=== PATIENT | male | born 1945 | race Caucasian/White ===

== ENCOUNTER → 2016-03-26 | Outpatient (CLI) | payer OTHER, MEDICARE ==
[~2016-03-26] MED LIST: ALPR-411 PO; ALPR0.25 PO; ASCO10003 PO; ASPI81TA28 PO; ATOR-24 PO; ATRIN INH; BISM262C6 PO; CALC500C3 PO; CLOP1TAB15 PO; CYCL0.052 OP; EPP3/2 IM; ESCI10TA17 PO; FURO-85 PO; GABA-112 PO; GLUC1CAP28 PO; GLUCTAB7 PO; IMD/2 PO; IMDSR30 PO; ISOS30TA3 PO; ISOS30TA51 PO; LACT1TAB4 PO; LISI-729 PO; LORA10TA44 PO; LSX20 PO; MELA1TAB20 PO; METH-589 PO; METO25TA3 PO; MULT-506 PO; OMEG10007 PO; OMEG5CAP PO; ONDA4TAB46 PO; OXYC1CAP5 PO; PARO40TA3 PO; POLY1SOL6 OP; POLYSOL4 OP; POTA-331 PO; POTA1CAP2 PO; PRAV80TA2 PO; PROB1TAB16 PO; PRVHFAIN INH; RSTOPS OP; TPRSR25 PO; TYLER650 PO; ZINC1TAB PO
[2016-03-26 10:49] LABS: BASO % 0.6 %; BASO ABS # 0.06 K/uL (0-0.2); COMPLETE YES; EOS % 5.5 %; HEMATOCRIT 44.7 % (42-52); IG% 0.2 %; LYMPH % 40.6 %; LYMPH ABS # 3.89 K/uL (1.2-3.4); MEAN CORPUSCULAR HEMOGLOBIN 32.8 pg (25-34); MEAN PLATELET VOLUME 10.4 fL (7.4-10.4); MONO % 8.1 %; PLATELET COUNT 337 K/uL (130-400); RED BLOOD COUNT 4.91 M/uL (4.7-6.1); WHITE BLOOD COUNT 9.59 K/uL (4.8-10.8)
[2016-03-26 11:01] LABS: ALT/SGPT 27 U/L (12-78); AST/SGOT 15 U/L (15-37); BLOOD UREA NITROGEN 15 mg/dl (7-18); BUN/CREATININE RATIO 16.7 (10-20); CALCIUM 9.5 mg/dl (8.5-10.1); CARBON DIOXIDE 29 mmol/L (21-32); CHLORIDE 106 mmol/L (98-107); GLUCOSE 96 mg/dl (70-99); POTASSIUM 3.8 mmol/L (3.5-5.1); SODIUM 142 mmol/L (136-145)
[2016-03-26 11:10] LABS: ALKALINE PHOSPHATASE 115 U/L (45-117); CHOLESTEROL 164 mg/dl (0-200); CHOLESTEROL/HDL RATIO 3.6; HDL CHOLESTEROL 46 mg/dl; LDL CHOLESTEROL CALCULATED 82 mg/dl; THYROID STIMULATING HORMONE 0.358 uIu/ml (0.300-4.500); TRIGLYCERIDES 180 mg/dl (0-150); VERY LOW DENSITY LIPOPROT CALC 36 mg/dl
[2016-03-29 01:35] LABS: IGA SERUM 252 mg/dL (81-463); TIS TRANS IGA 1 U/mL (<4)
== END | disposition home or self-care (01) ==
LOC: C.LABBC 07:56
PROVIDERS: ATTEND Internal Medicine
DX: R94.5 Abnormal results of liver function studies (principal); D72.829 Elevated white blood cell count, unspecified; E78.5 Hyperlipidemia, unspecified; R14.0 Abdominal distension (gaseous); E04.1 Nontoxic single thyroid nodule

== ENCOUNTER → 2016-04-15 | Outpatient (CLI) | payer OTHER, MEDICARE | END | disposition home or self-care (01) | LOC: C.LABBC 10:41 | PROVIDERS: ATTEND Urology | DX: Z12.5 Encounter for screening for malignant neoplasm of prostate (principal); N40.0 Benign prostatic hyperplasia without lower urinary tract symptoms ==

== ENCOUNTER 2016-06-13 00:16 | Emergency (ER) | payer OTHER, MEDICARE ==
[~2016-06-13] VITALS: Ht 172.7 cm; Wt 80.7 kg
[~2016-06-13 00:16] MED LIST changes: -ALPR0.25 PO; -ATOR-24 PO; -BISM262C6 PO; -CALC500C3 PO; -CLOP1TAB15 PO; -CYCL0.052 OP; -ESCI10TA17 PO; -FURO-85 PO; -GLUC1CAP28 PO; -IMD/2 PO; -ISOS30TA3 PO; -ISOS30TA51 PO; -METO25TA3 PO; -OMEG10007 PO; -ONDA4TAB46 PO; -OXYC1CAP5 PO; -POLY1SOL6 OP; -POLYSOL4 OP; -POTA1CAP2 PO; -PROB1TAB16 PO
[2016-06-13 00:17] VITALS: TEMP 36.7
[2016-06-13] MEDS ORDERED: ONDANSETRON INJ 2 MG/ML 2 ML VIAL IV STA (00:51)
[2016-06-13] MEDS ORDERED: MoRPHine SULFATE 4 MG/ML 1 ML CARP\\VIAL IV STA ×2 (00:51→01:46)
[2016-06-13] MEDS ORDERED: OPTIRAY 320 IV PRN (01:00)
[2016-06-13 01:06] LABS: BASO % 0.3 %; BASO ABS # 0.05 K/uL (0-0.2); COMPLETE YES; EOS % 0.5 %; HEMATOCRIT 41.7 % (42-52); IG% 0.3 %; LYMPH % 14.9 %; LYMPH ABS # 2.45 K/uL (1.2-3.4); MEAN CELL VOLUME 89.1 fL (80-100); MEAN CORPUSCULAR HEMOGLOBIN 33.1 pg (25-34); MEAN CORPUSCULAR HGB CONC 37.2 g/dl (32-36); MEAN PLATELET VOLUME 10.2 fL (7.4-10.4); MONO % 6.1 %; NEUT % 77.9 %; PLATELET COUNT 333 K/uL (130-400); RED BLOOD COUNT 4.68 M/uL (4.7-6.1); WHITE BLOOD COUNT 16.39 K/uL (4.8-10.8)
[2016-06-13 01:17] VITALS: O2SAT 97; Ht 172.7 cm; Wt 80.7 kg
[2016-06-13 01:23] LABS: ALT/SGPT 21 U/L (12-78); AST/SGOT 16 U/L (15-37); BLOOD UREA NITROGEN 11 mg/dl (7-18); BUN/CREATININE RATIO 12.5 (10-20); CALCIUM 9.5 mg/dl (8.5-10.1); CARBON DIOXIDE 25 mmol/L (21-32); CHLORIDE 105 mmol/L (98-107); CREATININE 0.87 mg/dl (0.60-1.40); GLUCOSE 122 mg/dl (70-99); POTASSIUM 3.9 mmol/L (3.5-5.1); SODIUM 140 mmol/L (136-145)
[2016-06-13 01:24] LABS: ISTAT CREATININE 0.8 mg/dl (0.6-1.3); ISTAT IONIZED CALCIUM 1.14 mmol/l (1.12-1.32)
[2016-06-13 01:28] LABS: ALB/GLOB RATIO 0.9 (0.9-2); ALKALINE PHOSPHATASE 90 U/L (45-117)
[2016-06-13] MEDS ORDERED: OMEG10007 PO (01:28)
[2016-06-13] MEDS ORDERED: FURO-85 PO (01:29)
[2016-06-13] MEDS ORDERED: ISR/30 PO (01:31)
[2016-06-13] MEDS ORDERED: METO25TA3 PO (01:34)
[2016-06-13] MEDS ORDERED: POTA1CAP2 PO (01:37)
[2016-06-13] MEDS ORDERED: NURSING VERBAL MED ORDER ONE (01:45)
[2016-06-13 01:49] LABS: PARTIAL THROMBOPLASTIN RATIO 1.1; PROTHROMBIN TIME (PATIENT) 11.1 SECONDS (9.0-12.0)
[2016-06-13] MEDS ORDERED: ESCI10TA17 PO (01:53)
[2016-06-13] MEDS ORDERED: IMD/2 PO (01:57)
[2016-06-13] MEDS ORDERED: HYDROmorphone INJ 2 MG/ML SYR/VIAL IV STA (01:59)
[2016-06-13] MEDS ORDERED: POLYSOL4 OP (02:02)
[2016-06-13] MEDS ORDERED: POLY1SOL6 OP (02:02)
[2016-06-13] MEDS ORDERED: HYDROmorphone INJ 1 MG/ML SYR ONE (02:37)
[2016-06-13 04:04] LABS: MANUAL MICROSCOPIC REQUIRED? NO; REVIEW REQ? NO; URINE APPEARANCE CLEAR (CLEAR); URINE BILIRUBIN NEG (NEG); URINE COLOR YELLOW; URINE NITRITE NEG (NEG); URINE PH 6.5 (4.5-7.5); URINE SPECIFIC GRAVITY > 1.045 (1.000-1.030); UROBILINOGEN NEG (NEG); ZZUR CULT IF INDIC CLEAN CATCH NO
--- NOTE | 2016-06-13 04:56 | EMERGENCY ROOM VISIT NOTE ---
History First contact with patient: 00:27 Chief Complaint: ABDOMINAL PAIN Stated Complaint: STOMACH/INTESTINAL PAINS,BLOATING,GAS,DIARRHEA Nursing Triage Summary: Abdominal pain, bloating and nausea that began intermittently since october, this period of symptoms began friday. Pain has been intermittent as well. History of Present Illness The patient is a 71 year old male who presents to the Emergency Room with complaints of severe upper abdominal pain this been intermittent for the past few days with nausea and diarrhea. Patient had an episode 2 days ago, yesterday and today. Tonight after dinner symptoms came back and was quite severe. He had gnocci with spaghetti sauce. He describes the pain as cramping , ranging in severity 8 out of 10. Nothing made it better or worse. He tried some Pepto-Bismol no relief of symptoms. He took Imodium for the diarrhea. No recent antibiotics. No well water. Patient denies chest pain, fever, chills, black or bloody stool, urinary symptoms. The pain does not radiate. He still has his gallbladder. No prior abdominal surgeries. No history of bowel obstructions. Dr. Christy is his multisensor intelligence officer. Review of Systems See HPI for pertinent positives & negatives. A total of 10 systems reviewed and were otherwise negative. Past Medical/Surgical History Medical Problems: (1) Chest pain (2) Depression (3) History of thyroid nodule (4) Hyperlipidemia (5) Hypertension (6) Osteoporosis Family History Diabetes mellitus FH: heart disease Stroke Social History Smoking Status: Never Smoker Marital Status: Housing Status: lives with significant other Occupation Status: retired Current/Historical Medications Scheduled Ascorbic Acid (Vitamin C), 1,000 MG PO DAILY Aspirin (Aspirin Ec), 81 MG PO HS Cyclosporine (Restasis Eye Drops), 1 DROP OP BID Epinephrine (Epipen), 0.3 MG IM UD Escitalopram (Lexapro), 10 MG PO DAILY Fish Oil ([place]-3), 1,200 MG PO DAILY Furosemide (Lasix), 20 MG PO DAILY Gabapentin (Neurontin), 100 MG PO BID Tnnhrbtazuj-Emmrmpzflyw-Zkg C- (Glucosamine Chondroitin), 1 TAB PO DAILY Isosorbide Dinitrate (Isordil), 30 MG PO DAILY Lactobacillus (Floranex), 1 TAB PO TID Lisinopril (Zestril), 5 MG PO DAILY Loratadine (Allergy), 10 MG PO DAILY Methimazole (Methimazole ), 5 MG PO HS Metoprolol Succ (Toprol Xl) (Toprol-Xl), 25 MG PO BID Multivitamin (Multivitamin), 1 TAB PO DAILY Polyethylene Glycol-Propylene (Systane Ultra), 1 DROPS OP QID Potassium Chloride (Potassium Chloride Er), 10 MEQ PO DAILY Pravastatin Sodium (Pravastatin Sodium), 80 MG PO HS Scheduled PRN Acetaminophen (Tylenol Arthitis Ext Rel), 2 TABS PO TID PRN for PRN Alprazolam (Xanax), 0.25 MG PO HS PRN for Anxiety/Insomnia Loperamide Hcl (Imodium), 2 MG PO QID PRN for Diarrhea Melatonin (Melatonin Tr), 5-10 MG PO HS PRN for Sleep Zinc Gluconate (Zinc), 50 MG PO DAILY PRN for cold Allergies Coded Allergies: BEE STING (Verified Allergy, Mild, 06/13/16) Physical Exam Vital Signs Date Time Temp Pulse Resp B/P Pulse Ox O2 Delivery O2 Flow Rate FiO2 06/13/16 02:01 64 18 182/89 94 06/13/16 01:17 97 Room Air 06/13/16 00:17 36.7 88 20 193/105 96 Room Air Physical Exam VITALS: Vitals are noted on the nurse's note and reviewed by myself. Vital signs every 10th of GENERAL: Elderly male who appears in pain SKIN: The skin was without rashes, erythema, edema, or bruising. There is no tenting of the skin. Capillary reflex less than 2 seconds. HEAD: Normocephalic atraumatic. EARS: External auditory canals clear, tympanic membranes pearly davies without erythema or effusion bilaterally. EYES: Pupils equal round and reactive to light and accommodation. Conjunctivae without injection, sclerae without icterus. Extraocular movements intact. NOSE: Patent, turbinates without inflammation or discharge. MOUTH: Mucous membranes mildly dry. Pharynx without erythema or exudate. Uvula midline. Airway patent. Tongue does not deviate. NECK: Supple without nuchal rigidity. No lymphadenopathy. No thyromegaly. Cervical spine is nontender. No JVD. HEART: Regular rate and rhythm LUNGS: Clear to auscultation bilaterally without wheezes, rales or rhonchi. No dullness to percussion. No retractions or accessory muscle use. ABDOMEN: Positive bowel sounds x 4. Normal tympanic percussion. Soft, tender to palpation right upper quadrant, no CVA tenderness, without masses or organomegaly. No guarding or rebound tenderness. MUSCULOSKELETAL: No muscle atrophy, erythema, or edema noted. NEURO: Patient was alert and oriented to person place and time. Normal sensation to light and sharp touch. No focal neurological deficits. Medical Decision & Procedures Laboratory Results 06/13/16 00:57 Red Blood Count 4.68, Mean Corpuscular Volume 89.1, Mean Corpuscular Hemoglobin 33.1, Mean Corpuscular Hemoglobin Concent 37.2, Mean Platelet Volume 10.2, Neutrophils (%) (Auto) 77.9, Lymphocytes (%) (Auto) 14.9, Monocytes (%) (Auto) 6.1, Eosinophils (%) (Auto) 0.5, Basophils (%) (Auto) 0.3, Neutrophils # (Auto) 12.76, Lymphocytes # (Auto) 2.45, Monocytes # (Auto) 1.00, Eosinophils # (Auto) 0.08, Basophils # (Auto) 0.05 06/13/16 00:57 Test 06/13/16 00:57 06/13/16 01:03 06/13/16 01:11 06/13/16 03:11 White Blood Count 16.39 K/uL (4.8-10.8) Red Blood Count 4.68 M/uL (4.7-6.1) Hemoglobin 15.5 g/dL (14.0-18.0) Hematocrit 41.7 % (42-52) Mean Corpuscular Volume 89.1 fL (80-100) Mean Corpuscular Hemoglobin 33.1 pg (25-34) Mean Corpuscular Hemoglobin Concent 37.2 g/dl (32-36) Platelet Count 333 K/uL (130-400) Mean Platelet Volume 10.2 fL (7.4-10.4) Neutrophils (%) (Auto) 77.9 % Lymphocytes (%) (Auto) 14.9 % Monocytes (%) (Auto) 6.1 % Eosinophils (%) (Auto) 0.5 % Basophils (%) (Auto) 0.3 % Neutrophils # (Auto) 12.76 K/uL (1.4-6.5) Lymphocytes # (Auto) 2.45 K/uL (1.2-3.4) Monocytes # (Auto) 1.00 K/uL (0.11-0.59) Eosinophils # (Auto) 0.08 K/uL (0-0.5) Basophils # (Auto) 0.05 K/uL (0-0.2) RDW Standard Deviation 43.9 fL (36.4-46.3) RDW Coefficient of Variation 13.5 % (11.5-14.5) Immature Granulocyte % (Auto) 0.3 % Immature Granulocyte # (Auto) 0.05 K/uL (0.00-0.02) Prothrombin Time 11.1 SECONDS (9.0-12.0) Prothromb Time International Ratio 1.0 (0.9-1.1) Activated Partial Thromboplast Time 29.6 SECONDS (21.0-31.0) Partial Thromboplastin Ratio 1.1 Est Creatinine Clear Calc Drug Dose 73.1 ml/min Estimated GFR () 99.2 Estimated GFR (Non- 85.6 BUN/Creatinine Ratio 12.5 (10-20) Calcium Level 9.5 mg/dl (8.5-10.1) Total Bilirubin 0.5 mg/dl (0.2-1) Aspartate Amino Transf (AST/SGOT) 16 U/L (15-37) Alanine Aminotransferase (ALT/SGPT) 21 U/L (12-78) Alkaline Phosphatase 90 U/L (45-117) Troponin I < 0.015 ng/ml (0-0.045) Total Protein 7.9 gm/dl (6.4-8.2) Albumin 3.8 gm/dl (3.4-5.0) Globulin 4.1 gm/dl (2.5-4.0) Albumin/Globulin Ratio 0.9 (0.9-2) Bedside Hemoglobin 15.0 g/dl (14.0-18.0) Bedside Hematocrit 44 % (42-52) Bedside Sodium 140 mEq/L (135-144) Bedside Potassium 4.0 mEq/L (3.3-5.0) Bedside Chloride 102 mEq/L (101-112) Bedside Total CO2 22 mEq/l (24-31) Anion Gap 21.0 mmol/L (16-25) Bedside Blood Urea Nitrogen 11 mg/dl (7-18) Bedside Creatinine 0.8 mg/dl (0.6-1.3) Bedside Glucose (other) 126 mg/dl (70-99) Bedside Ionized Calcium (Darwin) 1.14 mmol/l (1.12-1.32) Bedside Lactic Acid Venous 1.75 mmol/L (0.90-1.70) Urine Color YELLOW Urine Appearance CLEAR (CLEAR) Urine pH 6.5 (4.5-7.5) Urine Specific [place] > 1.045 (1.000-1.030) Urine Protein NEG (NEG) Urine Glucose (UA) NEG (NEG) Urine Ketones 1+ (NEG) Urine Occult Blood NEG (NEG) Urine Nitrite NEG (NEG) Urine Bilirubin NEG (NEG) Urine Urobilinogen NEG (NEG) Urine Leukocyte Esterase NEG (NEG) Medications Administered Medications (Trade) Dose Ordered Sig/Bobbi Route Start Time Stop Time Status Last Admin Dose Admin Morphine Sulfate (MoRPHine SULFATE INJ) 4 mg NOW STAT IV 06/13/16 00:51 06/13/16 00:55 DC 06/13/16 01:05 4 MG Ondansetron HCl (Zofran Inj) 4 mg NOW STAT IV 06/13/16 00:51 06/13/16 00:55 DC 06/13/16 01:05 4 MG Morphine Sulfate (MoRPHine SULFATE INJ) 4 mg NOW STAT IV 06/13/16 01:46 06/13/16 01:47 DC 06/13/16 01:46 4 MG ED Course Prior records/ancillary studies reviewed. Triage Nursing notes reviewed. Additional history obtained from family. The patient's history was concerning for abdominal pain. Differential diagnosis: Etiologies such as appendicitis, cardiac, diverticulitis, PUD, biliary pathology , UTI, pancreatitis, obstruction, mesenteric ischemia, aortic pathology, infections, inflammatory bowel disease, renal colic, as well as others were entertained. Physical examination findings: As above. ER treatment provided: Morphine, Zofran On reassessment the patient felt better. Diagnostics interpreted by me: ECG: Normal sinus, normal intervals, T wave inversions in the lateral leads, rate of 64, EKG compared to prior EKG with no acute changes noted. Impression normal sinus rhythm with T-wave inversions in lateral leads interpreted by myself. The labs revealed leukocytosis, mildly elevated lactic acid. Negative urine. Negative troponin. Imaging studies: US RUQ: Exam limited by bowel gas. The pancreas is not well-visualized. Liver measures 14.2 cm in length and is otherwise unremarkable. Right kidney demonstrates normal sonographic appearance without evidence of hydronephrosis. There is cholelithiasis without gallbladder wall thickening, pericholecystic fluid, or sonographic Mina sign. Common bile duct measures 2.1 mm. Radiologist: Kirt Parra M.D. Chest x-ray with no acute consolidation, free air or pneumothorax per my interpretation Preliminary Findings Only See Final Report For Complete Findings CT ABDOMEN & PELVIS: Comparison is made to CT dated 09/10/2007. There is been previous midline sternotomy. There is coronary atherosclerosis. Pacer leads are visualized extending to the right heart. The lung bases are clear. There is a small sliding-type hiatal hernia. There is a punctate gallstone within the gallbladder without findings of acute cholecystitis. The liver, spleen, pancreas, and adrenal glands are unremarkable. There are subcentimeter cysts in the upper pole of the left kidney. There is cortical scarring of the left kidney. Kidneys enhance symmetrically without hydronephrosis or perinephric stranding. There is aortoiliac atherosclerosis without aneurysm. There is calcific plaque at and cephalad to the origin of the celiac access resulting in 50% stenosis of the abdominal aorta (2- 29), increased from prior exam. Plaque may involve the origin of the celiac axis. There is no evidence of bowel obstruction. The visualized appendix is normal. There is diverticulosis of the sigmoid colon without evidence of acute diverticulitis. Urinary bladder and prostate are unremarkable. There are no acute osseous findings. Facet arthrosis results in grade 1 anterolisthesis of L4, increased from prior exam. 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 Radiologist: Kirt Parra M.D. Exam and history seem consistent with biliary colic. Patient is cholelithiasis without cholecystitis on ultrasound. Patient tolerated fluids. He felt better and requested to leave. Patient was offered admission and declined. He states he'll follow-up within 24 hours at the family care Dr. for further evaluation and workup or here in the ER sooner for abdominal pain, fevers, vomiting, worsening signs or symptoms or as needed. I felt this is reasonable. Case management will follow-up today with the patient to make sure he follows up with the family care doctor. By the evaluation outlined above emergent etiologies such as appendicitis, diverticulitis, PUD, UTI, pancreatitis, obstruction, mesenteric ischemia, aortic pathology, infections, inflammatory bowel disease, renal colic, as well as others were deemed relatively unlikely. The pt informed about the findings as listed above. All questions were answered and pleased with the treatment. Return instructions were outlined and the patient was discharged in stable condition. Outpatient prescription management: Zofran, OxyIR Referral: The patient was referred back to their primary care physician for follow-up in 24 hours for a recheck of the current condition. Case reviewed by attending Medical Decision As above Impression Primary Impression: Biliary colic Additional Impression: Abdominal pain Departure Information Dispostion Home / Self-Care Condition GOOD Referrals Pro,Jair Denney M.D. (PCP) Patient Instructions My [facility] Additional Instructions DO NOT drive, drink alcohol, operate machinery, or perform dangerous activities today. You were given medications in the ER that can affect your ability to safely function or operate a vehicle. Oxycodone (OxyIR) 5mg: Take 1-2 pills every four hours for breakthrough pain. Avoid alcohol, operating machinery or dangerous equipment, working on ladders or roofs, DRIVING, or situations where being under the influence may be dangerous. It is recommended to use an [id number] stool softener such as Colace, 100mg twice daily while taking this medication to avoid constipation. Ibuprofen(Motrin, Advil) may be used for fever or pain. Use 600mg every six hours as needed. Take with food. Avoid using more than 2400mg in a 24 hour period. Do not use 2400mg per day for more than three consecutive days without physician direction. Prolonged inappropriate use can lead to stomach upset or ulcers. (AND/OR) Acetaminophen(Tylenol) may be used for fever or pain. Use 1000mg every six hours as needed. Avoid using more than 3000mg in a 24 hour period. Zofran 4mg: Take one every six hours as needed for nausea. Avoid alcohol, operating machinery or dangerous equipment, working on ladders or roofs, DRIVING , or situations where being under the influence may be dangerous. Rest and drink plenty of fluids as tolerated. Slow sips of water or sports drinks are recommended instead of large amounts all at once. Continue current medications. Once your stomach is settled start with a clear liquid diet (jello, soup broth, etc.) and then advance as tolerated. You should avoid full, heavy meals for about 24 hrs from the time your symptoms resolved. Avoid fatty foods until cleared by your family care doctor. Return to the ER immediately for worsening or persistent abdominal pain, vomiting, fevers, chest pains, difficulty breathing, black or bloody stools, worsening of your condition, or as needed. Follow up with your primary physician in 24 hours for a recheck of your current condition and for further testing and/or gallbladder such as a HIDA scan. Problem Qualifiers
[2016-06-13] MEDS ORDERED: ONDANSETRON HOME PACK 4MG OD TAB PO ONE (05:00)
[2016-06-13] MEDS ORDERED: OXYCODONE IR HOME PACK PO ONE (05:00)
[2016-06-13 05:11] VITALS: BP 165/82; PULSE 69; O2SAT 95
--- NOTE | 2016-06-13 06:08 | EMERGENCY ROOM VISIT NOTE ---
ED Visit Note First contact with patient: 00:27 I have personally evaluated and examined this patient. I agree with assessment and plan of Katerin Mensah PA-C.
--- NOTE | 2016-06-13 07:19 | DIAGNOSTIC IMAGING REPORT ---
ABDOMEN AND PELVIS CT WITH IV CONTRAST CT DOSE: 334.17 mGy.cm HISTORY: severe upper abd pain TECHNIQUE: Multiaxial CT images of the abdomen and pelvis were performed following the use of intravenous contrast. COMPARISON STUDY: Abdomen and pelvis CT 09/10/2007. FINDINGS: The lung bases are clear. Bilateral L5 spondylolysis. Poststernotomy changes and pacemaker wires are present. Small hiatus hernia. A 1.8 cm lipoma at the gastric antrum. A 4 mm hypodense lesion within the right hepatic lobe is too small to characterize. Focal small defect within the spleen suggestive of scarring. The adrenal glands and pancreas are unremarkable. No hydronephrosis. A few subcentimeter hypodense lesions within the kidneys are too small to characterize. The largest within the upper pole the left kidney measures 8 mm. Normal bladder. Punctate stones within the gallbladder. No gallbladder wall thickening. No retroperitoneal lymphadenopathy. Colonic diverticulosis. No bowel wall thickening or obstruction. Normal appendix. Focal area of calcified plaque at the origin of the celiac artery resulting in 40% stenosis of the abdominal aorta at this level. IMPRESSION: 1. No bowel wall thickening or obstruction. 2. Colonic diverticulosis. 3. Normal appendix. 4. A 1.8 cm lipoma the gastric antrum. 5. Cholelithiasis. 6. Focal area of calcified plaque at the level of the origin of the celiac artery resulting in 40% stenosis of the abdominal aorta. Electronically signed by: Adam Issa M.D. 06/13/2016 7:17 AM Dictated Date/Time: 06/13/2016 7:12 AM
--- NOTE | 2016-06-13 07:21 | DIAGNOSTIC IMAGING REPORT ---
Arm quadrant ultrasound GALLBLADDER-ABD LIMITED CLINICAL HISTORY: rug pain, ? GB pain. Nausea. TECHNIQUE: Ultrasound COMPARISON STUDY: None FINDINGS: Gallstones and sludge within the gallbladder lumen. Normal caliber bile ducts. No abnormal pericholecystic fluid. Extrahepatic common bile that measures 4 mm. Liver is uniform throughout. Pancreas and right kidney are unremarkable. Right kidney is negative for hydronephrosis. IMPRESSION: Several gallstones with a small amount of gallbladder sludge. Normal caliber bile ducts. Otherwise negative right upper quadrant ultrasound Electronically signed by: Elroy Navarro M.D. 06/13/2016 7:19 AM Dictated Date/Time: 06/13/2016 7:17 AM
--- NOTE | 2016-06-13 08:04 | DIAGNOSTIC IMAGING REPORT ---
CHEST ONE VIEW PORTABLE HISTORY: epigastric pain COMPARISON: Chest 10/27/2015. FINDINGS: There are post anatomy changes and left-sided dual-chamber pacemaker. There are cervical spinal fusion hardware. A vascular stent overlies the aortic knob. The heart remains mildly enlarged. No pleural effusions. No pneumothorax. The lungs are clear. IMPRESSION: No significant change compared to the prior study. No acute process. Electronically signed by: Adam Issa M.D. 06/13/2016 8:02 AM Dictated Date/Time: 06/13/2016 8:01 AM
[2016-06-14] MEDS ORDERED: OXYC1CAP5 PO (17:58)
[2016-06-14] MEDS ORDERED: ONDA4TAB46 PO (17:58)
[2016-09-20] MEDS ORDERED: ATOR-24 PO (11:21)
[2016-09-20] MEDS ORDERED: BISM262C6 PO (11:21)
[2016-09-20] MEDS ORDERED: PROB1TAB16 PO (11:21)
[2016-09-20] MEDS ORDERED: ALPR0.25 PO (11:21)
[2016-09-20] MEDS ORDERED: CLOP1TAB15 PO (11:21)
[2016-09-20] MEDS ORDERED: CALC500C3 PO (11:21)
[2016-09-20] MEDS ORDERED: CYCL0.052 OP (11:21)
[2016-09-20] MEDS ORDERED: ISOS30TA3 PO (11:21)
[2016-09-20] MEDS ORDERED: GLUC1CAP28 PO (11:21)
== END 2016-06-13 05:13 | disposition home or self-care (01) ==
LOC: C.EDB 00:17
DX: K80.50 Calculus of bile duct without cholangitis or cholecystitis without obstruction (principal); R10.10 Upper abdominal pain, unspecified; E78.5 Hyperlipidemia, unspecified; I10 Essential (primary) hypertension; F32.9 Major depressive disorder, single episode, unspecified; M81.0 Age-related osteoporosis without current pathological fracture; Z79.82 Long term (current) use of aspirin; Z79.899 Other long term (current) drug therapy; Z91.030 Bee allergy status

== ENCOUNTER 2016-06-14 15:29 | Emergency (ER) | payer OTHER, MEDICARE ==
[~2016-06-14] VITALS: Ht 172.7 cm; Wt 80.0 kg
[~2016-06-14 15:29] MED LIST changes: -ATRIN INH; +ESCI10TA17 PO; +FURO-85 PO; +IMD/2 PO; -IMDSR30 PO; +ISR/30 PO; -LSX20 PO; +METO25TA3 PO; +OMEG10007 PO; -OMEG5CAP PO; -PARO40TA3 PO; +POLY1SOL6 OP; -POTA-331 PO; +POTA1CAP2 PO; -PRVHFAIN INH; -TPRSR25 PO
[2016-06-14 15:34] VITALS: Ht 172.7 cm; Wt 80.0 kg
[2016-06-14] MEDS ORDERED: ONDANSETRON INJ 2 MG/ML 2 ML VIAL IV STA (17:43)
[2016-06-14] MEDS ORDERED: SODIUM CHLORIDE 0.9% 1000ML 1,000 ML IV STA (17:43)
[2016-06-14] MEDS ORDERED: MoRPHine SULFATE 4 MG/ML 1 ML CARP\\VIAL IV STA ×2 (17:43→20:12)
[2016-06-14] MEDS ORDERED: OXYC1CAP5 PO (17:58)
[2016-06-14] MEDS ORDERED: ONDA4TAB46 PO (17:58)
[2016-06-14 18:29] LABS: HEMATOCRIT 39.9 % (42-52); MEAN CELL VOLUME 89.9 fL (80-100); MEAN CORPUSCULAR HGB CONC 35.6 g/dl (32-36); MEAN PLATELET VOLUME 10.1 fL (7.4-10.4); PLATELET COUNT 309 K/uL (130-400); RED BLOOD COUNT 4.44 M/uL (4.7-6.1)
[2016-06-14 18:37] LABS: INR 1.2 (0.9-1.1); PARTIAL THROMBOPLASTIN RATIO 1.2
[2016-06-14 18:47] LABS: BUN/CREATININE RATIO 13.5 (10-20); CALCIUM 9.3 mg/dl (8.5-10.1); CREATININE 1.2 mg/dl (0.60-1.40); MAGNESIUM 1.9 mg/dl (1.8-2.4); POTASSIUM 4.6 mmol/L (3.5-5.1)
[2016-06-14 18:55] LABS: ALB/GLOB RATIO 0.8 (0.9-2); C-REACTIVE PROTEIN 24.9 mg/dl (0-0.29); CKMB/CK RATIO 1.3 (0-3.0)
--- NOTE | 2016-06-14 19:05 | EMERGENCY ROOM VISIT NOTE ---
History First contact with patient: 17:17 Chief Complaint: ABDOMINAL PAIN Stated Complaint: ABD. PAIN Nursing Triage Summary: Triage note: pt reports he was seen in ed friday night for same symptoms. pt reports "i have extreme pain in my lower abd the pain never went away and it got worse last night." pt reports nausea and vomitting. pt reports constipation - last bm was friday. History of Present Illness The patient is a 71 year old male who presents to the Emergency Department by private vehicle for ongoing symptoms of abdominal pain and nausea with associated vomiting after eating. He reports that he feels as though his symptoms initially developed in October 2015 and have progressively worsened since. He reports over the past week he has had increasing pain following eating. He has had vomiting as well. He was seen in this facility yesterday and had evaluation for possible biliary colic with associated gallstones. It was suggested that he might need a HIDA scan. He was referred back to his primary care provider with whom he followed up today. He reports that her symptoms of pain worsened today. He made his primary care provider aware. He was roughly directed to the emergency Department for further evaluation and management. The patient reports pain in the lower abdomen today where his pain was in the upper abdomen previously. He is had nausea and vomiting after meals. He rates his current discomfort as a 10/10. He denies any previous abdominal surgeries. The patient does have a significant cardiac history consistent with hypertension, coronary artery disease, CABG 4 in 2005 with subsequent stenting performed in 2015. The patient had a cardiac arrest in 2014 with subsequent AICD placement. The patient has used his Percocet he was provided during previous visit with minimal relief of symptoms. He currently denies any headaches, dizziness, chest pain, palpitations, short of breath, cough, hematemesis, hematochezia, melena, hematuria, or dysuria. Review of Systems A complete 10-point Review of Systems was discussed with the patient, with pertinent positives and negatives listed in the History of Present Illness. All remaining Review of Systems questions can be considered negative unless otherwise specified. Past Medical/Surgical History Medical Problems: (1) Chest pain (2) Depression (3) History of thyroid nodule (4) Hyperlipidemia (5) Hypertension (6) Osteoporosis Family History Diabetes mellitus FH: heart disease Stroke Social History Smoking Status: Never Smoker Smokeless Tobacco Use: No Alcohol Use: none Drug Use: none Marital Status: Housing Status: lives with significant other Occupation Status: retired Current/Historical Medications Scheduled Ascorbic Acid (Vitamin C), 1,000 MG PO DAILY Aspirin (Aspirin Ec), 81 MG PO HS Cyclosporine (Restasis Eye Drops), 1 DROP OP BID Epinephrine (Epipen), 0.3 MG IM UD Escitalopram (Lexapro), 10 MG PO DAILY Fish Oil ([place]-3), 1,200 MG PO DAILY Furosemide (Lasix), 20 MG PO DAILY Gabapentin (Neurontin), 100 MG PO BID Ozjwpdsooqr-Ryttfbsocto-Mhf C- (Glucosamine Chondroitin), 1 TAB PO DAILY Isosorbide Dinitrate (Isordil), 30 MG PO DAILY Lactobacillus (Floranex), 1 TAB PO TID Lisinopril (Zestril), 5 MG PO DAILY Loratadine (Allergy), 10 MG PO DAILY Methimazole (Methimazole ), 5 MG PO HS Metoprolol Succ (Toprol Xl) (Toprol-Xl), 25 MG PO BID Multivitamin (Multivitamin), 1 TAB PO DAILY Polyethylene Glycol-Propylene (Systane Ultra), 1 DROPS OP QID Potassium Chloride (Potassium Chloride Er), 10 MEQ PO DAILY Pravastatin Sodium (Pravastatin Sodium), 80 MG PO HS Scheduled PRN Acetaminophen (Tylenol Arthitis Ext Rel), 2 TABS PO TID PRN for PRN Alprazolam (Xanax), 0.25 MG PO HS PRN for Anxiety/Insomnia Loperamide Hcl (Imodium), 2 MG PO QID PRN for Diarrhea Melatonin (Melatonin Tr), 5-10 MG PO HS PRN for Sleep Ondansetron Hcl (Zofran), 4 MG PO for Nausea Oxycodone Hcl (Oxycodone Hcl), 1 CAP PO TID PRN for Pain Zinc Gluconate (Zinc), 50 MG PO DAILY PRN for cold Allergies Coded Allergies: BEE STING (Verified Allergy, Mild, 06/14/16) Physical Exam Vital Signs Date Time Temp Pulse Resp B/P Pulse Ox O2 Delivery O2 Flow Rate FiO2 06/14/16 22:06 74 16 112/61 92 Nasal Cannula 2.0 06/14/16 21:12 37.2 75 16 113/82 93 Nasal Cannula 2.0 06/14/16 20:21 88 Nasal Cannula 2.0 06/14/16 20:20 69 16 123/67 92 06/14/16 19:58 72 16 147/79 92 Room Air 06/14/16 18:17 68 06/14/16 17:59 67 16 125/63 06/14/16 17:59 Room Air 06/14/16 15:34 36.5 75 18 121/73 94 Room Air Pain Rating (0-10): 10 Physical Exam VITAL SIGNS - Vital signs and nursing notes were reviewed. GENERAL - 71-year-old male appearing his stated age who is in no acute distress. Communicates well with provider and answers questions appropriately. LUNGS - Chest wall symmetric without accessory muscle use, intercostals retractions, or central cyanosis. Normal vesicular breath sounds CTA B/L. No wheezes, rales, or rhonchi appreciated. CARDIAC - RRR with S1/S2. No murmur, rubs, or gallops appreciated. ABDOMEN - Abdominal contour flat and without pulsations or visible masses. BS distant all four quadrants. Moderate tenderness to palpation appreciated in the lower abdomen. No guarding. No Rebound Tenderness. Negative Rovsing's. Negative Mina's. No palpable masses, hepatosplenomegaly, or ascites noted. PSYCH - A&Ox3 and cooperates fully with examiner. Pt is very pleasant and interacts well with examiner. Medical Decision & Procedures ER Provider Diagnostic Interpretation: Radiological imaging and reports were reviewed by myself. Radiologist's Interpretation as follows: CHEST AND ABDOMEN 2 VIEWS HISTORY: Generalized abdominal pain. COMPARISON: Chest 06/13/2016. Abdomen and pelvis CT 06/13/2016. FINDINGS: Poststernotomy changes and a left-sided pacemaker. Cervical spinal fusion hardware is again noted. There is a vascular stent overlying the aortic knob. No pleural effusions. No pneumothorax. The heart remains mildly enlarged. No pneumoperitoneum or pneumatosis. Interval development of a dilated loop of small bowel within the abdomen containing fluid levels. This measures up to 4 cm in diameter. There is gas and stool seen throughout the colon. IMPRESSION: 1. No acute process within the chest. 2. Interval development of a dilated gas and fluid-filled loop of small bowel within the midabdomen. Gas and stool remains within the colon. Therefore, this could represent a partial small bowel obstruction. ABDOMEN AND PELVIS CT WITH IV CONTRAST CT DOSE: 610.19 mGy.cm HISTORY: Worsening generalized abdominal pain. Small bowel obstruction. Worsening leukocytosis. TECHNIQUE: Multiaxial CT images of the abdomen and pelvis were performed following the use of intravenous contrast. COMPARISON STUDY: Abdomen and pelvis CT 06/13/2016. FINDINGS: Post sternotomy changes and pacemaker wires are noted. Coronary artery calcifications. Bibasilar densities favor subsegmental atelectasis. Bilateral L5 spondylolysis with associated anterolisthesis. 5 mm hypodense lesion within the right hepatic dome is too small to characterize. Focal scar within the spleen remains unchanged. The adrenal glands and pancreas are unremarkable. Vicarious excretion of contrast within the gallbladder. No gallbladder wall thickening. Small hiatus hernia. There is again noted a 1.8 cm lipoma at the gastric antrum. A few subcentimeter hypodense lesions within the kidneys are too small to characterize. The largest in the left kidney measures 7 mm. A 4 mm stone within the left kidney. No hydronephrosis. Focal area of calcified plaque within the upper abdominal aorta at the level of the celiac artery which results in 40% stenosis of the abdominal aorta this level. There is also focal narrowing at the origin of the celiac and superior mesenteric artery. 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 There appears be mild fat stranding surrounding the celiac artery. There are multifocal areas of diminished flow within a branch of the superior mesenteric artery extending to the distal ileal loops which is highly suggestive of areas of arterial occlusion. There is associated mild thickening of the distal ileal loops with minimal surrounding fat stranding. The distal ileal loops are fluid-filled and slightly dilated. There may be a few punctate foci of nondependent gas within the thickened ileal loops. Therefore, this raises the possibility of developing pneumatosis. This is best seen on image 295 of 506. The bladder is unremarkable. Approximately 40% focal stenosis at the origin of the right common iliac artery. Colonic diverticulosis. IMPRESSION: 1. Multifocal areas of diminished contrast opacification within a branch of the superior mesenteric artery which extends to the distal ileal loops consistent with high-grade arterial stenosis/occlusion. There is associated mild bowel wall thickening and adjacent fat stranding at the distal ileal loops. Therefore, these findings are highly suspicious for an ischemic enteritis. Inflammatory or infectious process could also have a similar appearance in the appropriate clinical setting. There may be a few punctate foci of nondependent gas within the thickened ileal loops. Therefore, this raises the possibility of developing pneumatosis. 2. Focal area of calcified plaque within the upper abdominal aorta resulting in 40% stenosis of the upper abdominal aorta. This is located at the origin of the celiac and superior mesenteric arteries also resulting in stenosis of these arteries. There is also suggestion of mild fat stranding surrounding the celiac artery. Therefore, there could be a superimposed arteritis. Clinical correlation recommended. 3. Additional findings as described above. 4. These findings were discussed the patient's physician registered dental assistant rda, Wander Puckett, at 8:35 PM on 06/14/2016. Laboratory Results 06/14/16 18:12 Red Blood Count 4.44, Mean Corpuscular Volume 89.9, Mean Corpuscular Hemoglobin 32.0, Mean Corpuscular Hemoglobin Concent 35.6, Mean Platelet Volume 10.1, Neutrophils (%) (Auto) 78.0, Lymphocytes (%) (Auto) 9.5, Monocytes (%) (Auto) 12.1, Eosinophils (%) (Auto) 0.0, Basophils (%) (Auto) 0.1, Neutrophils # (Auto ) 14.59, Lymphocytes # (Auto) 1.78, Monocytes # (Auto) 2.26, Eosinophils # (Auto ) 0.00, Basophils # (Auto) 0.02 06/14/16 18:12 Test 06/14/16 18:12 06/14/16 18:23 06/14/16 21:10 White Blood Count 18.70 K/uL (4.8-10.8) Red Blood Count 4.44 M/uL (4.7-6.1) Hemoglobin 14.2 g/dL (14.0-18.0) Hematocrit 39.9 % (42-52) Mean Corpuscular Volume 89.9 fL (80-100) Mean Corpuscular Hemoglobin 32.0 pg (25-34) Mean Corpuscular Hemoglobin Concent 35.6 g/dl (32-36) Platelet Count 309 K/uL (130-400) Mean Platelet Volume 10.1 fL (7.4-10.4) Neutrophils (%) (Auto) 78.0 % Lymphocytes (%) (Auto) 9.5 % Monocytes (%) (Auto) 12.1 % Eosinophils (%) (Auto) 0.0 % Basophils (%) (Auto) 0.1 % Neutrophils # (Auto) 14.59 K/uL (1.4-6.5) Lymphocytes # (Auto) 1.78 K/uL (1.2-3.4) Monocytes # (Auto) 2.26 K/uL (0.11-0.59) Eosinophils # (Auto) 0.00 K/uL (0-0.5) Basophils # (Auto) 0.02 K/uL (0-0.2) RDW Standard Deviation 45.5 fL (36.4-46.3) RDW Coefficient of Variation 13.8 % (11.5-14.5) Immature Granulocyte % (Auto) 0.3 % Immature Granulocyte # (Auto) 0.05 K/uL (0.00-0.02) Dohle Bodies 1+ Erythrocyte Sedimentation Rate 48 mm/hr (0-14) Prothrombin Time 13.0 SECONDS (9.0-12.0) Prothromb Time International Ratio 1.2 (0.9-1.1) Activated Partial Thromboplast Time 32.0 SECONDS (21.0-31.0) Partial Thromboplastin Ratio 1.2 Anion Gap 9.0 mmol/L (3-11) Est Creatinine Clear Calc Drug Dose 53.0 ml/min Estimated GFR () 69.1 Estimated GFR (Non- 59.6 BUN/Creatinine Ratio 13.5 (10-20) Calcium Level 9.3 mg/dl (8.5-10.1) Magnesium Level 1.9 mg/dl (1.8-2.4) Total Bilirubin 1.2 mg/dl (0.2-1) Aspartate Amino Transf (AST/SGOT) 21 U/L (15-37) Alanine Aminotransferase (ALT/SGPT) 18 U/L (12-78) Alkaline Phosphatase 82 U/L (45-117) Total Creatine Kinase 173 U/L (39-308) Creatine Kinase MB 2.3 ng/ml (0.5-3.6) Creatine Kinase MB Ratio 1.3 (0-3.0) Troponin I 0.030 ng/ml (0-0.045) C-Reactive Protein 24.90 mg/dl (0-0.29) Total Protein 7.4 gm/dl (6.4-8.2) Albumin 3.2 gm/dl (3.4-5.0) Globulin 4.2 gm/dl (2.5-4.0) Albumin/Globulin Ratio 0.8 (0.9-2) Lipase 75 U/L (73-393) Bedside Lactic Acid Venous 1.64 mmol/L (0.90-1.70) Urine Color ORANGE Urine Appearance CLEAR (CLEAR) Urine pH 5.0 (4.5-7.5) Urine Specific [place] > 1.045 (1.000-1.030) Urine Protein 1+ (NEG) Urine Glucose (UA) NEG (NEG) Urine Ketones NEG (NEG) Urine Occult Blood TRACE (NEG) Urine Nitrite NEG (NEG) Urine Bilirubin NEG (NEG) Urine Urobilinogen NEG (NEG) Urine Leukocyte Esterase NEG (NEG) Urine WBC (Auto) 1-5 /hpf (0-5) Urine RBC (Auto) 0-4 /hpf (0-4) Urine Hyaline Casts (Auto) 10-30 /lpf (0-5) Urine Epithelial Cells (Auto) 10-20 /lpf (0-5) Urine Bacteria (Auto) NEG (NEG) Urine Pathogenic Casts /lpf (0) Medications Administered Medications (Trade) Dose Ordered Sig/Bobbi Route Start Time Stop Time Status Last Admin Dose Admin Morphine Sulfate (MoRPHine SULFATE INJ) 4 mg NOW STAT IV 06/14/16 17:43 06/14/16 17:44 DC 06/14/16 18:14 4 MG Ondansetron HCl 4 mg 4 mg NOW STAT IV 06/14/16 17:43 06/14/16 17:44 DC 06/14/16 18:14 4 MG Sodium Chloride (Nss 1000ml) 1,000 ml @ 80 mls/hr [id number] STAT IV 06/14/16 17:43 06/15/16 06:12 06/14/16 18:18 80 MLS/HR Morphine Sulfate (MoRPHine SULFATE INJ) 4 mg NOW STAT IV 06/14/16 20:12 06/14/16 20:13 DC 06/14/16 20:20 4 MG Piperacillin Sod/ Tazobactam Sod (Zosyn Iv) 4.5 gm NOW STAT IV 06/14/16 20:55 06/14/16 20:56 DC 06/14/16 21:08 4.5 GM Procedure Patient was placed on the cover operator and monitored throughout the entire extent of their stay. In addition, the patient's pulse oximetry was monitored throughout the entire stay. Any abnormalities or aberrancies were addressed appropriately. ECG Indication: abdominal pain Rate (beats per minute): 66 Rhythm: normal sinus Findings: nonspecific-ST abn (Lateral), no acute ischemic change Change: no significant change (from 06/13/2016.) ED Course Patient was seen and evaluated by myself. Previous emergency department visit notes were reviewed. Labs were drawn, saline lock in place. Patient was treated with 4 mg morphine and 4 mg Zofran intravenously. Obstruction series was obtained. X-ray was obtained. Laboratory results demonstrate a moderate leukocytosis of greater than 18,000. The patient is not anemic. There are no significant electrolyte abnormalities. ESR and CRP are both significantly elevated. [id number] lactic acid was found to be negative. Cardiac enzymes are negative. Troponin is negative. EKG is unchanged. X-ray concerning for small bowel instruction. The patient was evaluated and reports persistent pain. He was treated with an additional 4 mg [address] for [address] of the abdomen and pelvis with IV contrast was repeated. I was contacted by radiology for concerning findings. Case was reviewed with my attending physician and apparently evaluated the patient and agrees with the diagnostic approach and treatment plan. The patient was treated with IV Zosyn. I did discuss the case with Dr. Ana Neumann of general surgery. She feels this may be best managed from a vascular standpoint with possible tertiary care coverage. I did discuss the case with Dr. Pacheco. He feels this is mostly a surgical case. I did discuss the case with Dr. Skaggs of general surgery at [facility]. She will accept the patient, however she requests that I rediscuss the patient with Dr. Neumann. I did contact Dr. Neumann a second time. She still does not feel comfortable managing this patient at this facility. I was asked to speak with hospitalist at [facility] for transfer. I discussed the case with Dr. Hitchcock. He accepted admission. Patient was transferred to in stable condition. Medical Decision Given the patient's presentation and exam findings, I did elect to perform the above-mentioned workup. The patient presents to the emergency department with ongoing abdominal discomfort. She reports that the pain is now the lower abdomen. His exam is consistent with lower abdominal discomfort. He does have increasing leukocytosis from his previous visit. Most of his pain is postprandial in nature. I did repeat an x-ray initially which was concerning for small bowel structure. Given his worsening leukocytosis in the setting of a small bowel obstruction, I did elect to repeat the CT scan. CT was concerning for ischemic enteritis with possible developing pneumatosis. General surgeon was not comfortable managing the patient this facility and asked neurosurgery did not feel necessary for vascular intervention at this point. [facility] in transfer to their facility. The patient was transferred in stable condition. In the evaluation and treatment of this patient, the following differential diagnoses were considered: Appendicitis, Diverticulitis, Diverticulosis, Colitis , Ischemic Colitis, Inflammatory Bowel Disease, Irritable Bowel Disease, Testicular Torsion, Kidney Stone, Pyelonephritis, Hydronephrosis, Cholecystitis , Ascending Cholangitis, Choledocholithiasis, GERD. Impression Primary Impression: Ischemic enteritis Additional Impressions: Abdominal pain Pneumatosis of intestines Departure Information Dispostion Transfer Acute Care Facility Condition [facility] Referrals Pro,Jair Denney M.D. (PCP) Patient Instructions [facility] Problem Qualifiers Additional Impressions: Abdominal pain Abdominal location: lower abdomen, unspecified Qualified Codes: R10.30 - Lower abdominal pain, unspecified
[2016-06-14 19:17] LABS: BASO % 0.1 %; BASO ABS # 0.02 K/uL (0-0.2); COMPLETE YES; DOHLE BODIES 1+; IG% 0.3 %; LYMPH % 9.5 %; LYMPH ABS # 1.78 K/uL (1.2-3.4); MONO % 12.1 %
[2016-06-14] MEDS ORDERED: OPTIRAY 320 IV PRN (19:30)
[2016-06-14 20:21] VITALS: O2SAT 88
--- NOTE | 2016-06-14 20:38 | DIAGNOSTIC IMAGING REPORT ---
ABDOMEN AND PELVIS CT WITH IV CONTRAST CT DOSE: 610.19 mGy.cm HISTORY: Worsening generalized abdominal pain. Small bowel obstruction. Worsening leukocytosis. TECHNIQUE: Multiaxial CT images of the abdomen and pelvis were performed following the use of intravenous contrast. COMPARISON STUDY: Abdomen and pelvis CT 06/13/2016. FINDINGS: Post sternotomy changes and pacemaker wires are noted. Coronary artery calcifications. Bibasilar densities favor subsegmental atelectasis. Bilateral L5 spondylolysis with associated anterolisthesis. 5 mm hypodense lesion within the right hepatic dome is too small to characterize. Focal scar within the spleen remains unchanged. The adrenal glands and pancreas are unremarkable. Vicarious excretion of contrast within the gallbladder. No gallbladder wall thickening. Small hiatus hernia. There is again noted a 1.8 cm lipoma at the gastric antrum. A few subcentimeter hypodense lesions within the kidneys are too small to characterize. The largest in the left kidney measures 7 mm. A 4 mm stone within the left kidney. No hydronephrosis. Focal area of calcified plaque within the upper abdominal aorta at the level of the celiac artery which results in 40% stenosis of the abdominal aorta this level. There is also focal narrowing at the origin of the celiac and superior mesenteric artery. 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 There appears be mild fat stranding surrounding the celiac artery. There are multifocal areas of diminished flow within a branch of the superior mesenteric artery extending to the distal ileal loops which is highly suggestive of areas of arterial occlusion. There is associated mild thickening of the distal ileal loops with minimal surrounding fat stranding. The distal ileal loops are fluid-filled and slightly dilated. There may be a few punctate foci of nondependent gas within the thickened ileal loops. Therefore, this raises the possibility of developing pneumatosis. This is best seen on image 295 of 506. The bladder is unremarkable. Approximately 40% focal stenosis at the origin of the right common iliac artery. Colonic diverticulosis. IMPRESSION: 1. Multifocal areas of diminished contrast opacification within a branch of the superior mesenteric artery which extends to the distal ileal loops consistent with high-grade arterial stenosis/occlusion. There is associated mild bowel wall thickening and adjacent fat stranding at the distal ileal loops. Therefore, these findings are highly suspicious for an ischemic enteritis. Inflammatory or infectious process could also have a similar appearance in the appropriate clinical setting. There may be a few punctate foci of nondependent gas within the thickened ileal loops. Therefore, this raises the possibility of developing pneumatosis. 2. Focal area of calcified plaque within the upper abdominal aorta resulting in 40% stenosis of the upper abdominal aorta. This is located at the origin of the celiac and superior mesenteric arteries also resulting in stenosis of these arteries. There is also suggestion of mild fat stranding surrounding the celiac artery. Therefore, there could be a superimposed arteritis. Clinical correlation recommended. 3. Additional findings as described above. 4. These findings were discussed the patient's physician assistant production editor, Wander Puckett, at 8:35 PM on 06/14/2016. Electronically signed by: Adam Issa M.D. 06/14/2016 8:35 PM Dictated Date/Time: 06/14/2016 8:18 PM
--- NOTE | 2016-06-14 20:49 | EMERGENCY ROOM VISIT NOTE ---
ED Visit Note First contact with patient: 17:17 I did evaluate and examine this patient myself. I did guide management for the patient. I agree with the PA's assessment as discussed. Please see the PAs dictation for further details. I did independently review the CT scan and blood work. Surgery will be consulted.
[2016-06-14] MEDS ORDERED: PIPERACILLIN/TAZOBACTAM 4.5 GM/100ML D5W IV STA (20:55)
[2016-06-14 21:12] VITALS: TEMP 37.2
[2016-06-14 21:25] LABS: MANUAL MICROSCOPIC REQUIRED? NO; REVIEW REQ? YES; URINE APPEARANCE CLEAR (CLEAR); URINE BILIRUBIN NEG (NEG); URINE COLOR ORANGE; URINE NITRITE NEG (NEG); URINE SPECIFIC GRAVITY > 1.045 (1.000-1.030); UROBILINOGEN NEG (NEG); ZZUR CULT IF INDIC CLEAN CATCH NO
[2016-06-15 00:07] VITALS: BP 124/66; PULSE 76; O2SAT 92
[2016-09-20] MEDS ORDERED: ATOR-24 PO (11:21)
[2016-09-20] MEDS ORDERED: CYCL0.052 OP (11:21)
[2016-09-20] MEDS ORDERED: PROB1TAB16 PO (11:21)
[2016-09-20] MEDS ORDERED: BISM262C6 PO (11:21)
[2016-09-20] MEDS ORDERED: GLUC1CAP28 PO (11:21)
[2016-09-20] MEDS ORDERED: CALC500C3 PO (11:21)
[2016-09-20] MEDS ORDERED: ALPR0.25 PO (11:21)
[2016-09-20] MEDS ORDERED: CLOP1TAB15 PO (11:21)
[2016-09-20] MEDS ORDERED: ISOS30TA3 PO (11:21)
== END 2016-06-15 00:08 | disposition short-term general hospital (02) ==
LOC: C.EDB 15:30
DX: K55.9 Vascular disorder of intestine, unspecified (principal); R10.30 Lower abdominal pain, unspecified; K63.89 Other specified diseases of intestine; E78.5 Hyperlipidemia, unspecified; I10 Essential (primary) hypertension; M81.0 Age-related osteoporosis without current pathological fracture; Z83.3 Family history of diabetes mellitus; Z82.0 Family history of epilepsy and other diseases of the nervous system; Z79.82 Long term (current) use of aspirin

== ENCOUNTER → 2016-07-24 | Outpatient (CLI) | payer OTHER, MEDICARE ==
[~2016-07-24] MED LIST changes: +ALPR0.25 PO; +ATOR-24 PO; +BISM262C6 PO; +CALC500C3 PO; +CLOP1TAB15 PO; +CYCL0.052 OP; +GLUC1CAP28 PO; +ISOS30TA3 PO; +ONDA4TAB46 PO; +OXYC1CAP5 PO; +PROB1TAB16 PO
[2016-07-24 14:51] LABS: BASO % 0.4 %; BASO ABS # 0.03 K/uL (0-0.2); COMPLETE YES; EOS % 1.9 %; HEMATOCRIT 40.2 % (42-52); IG% 0.1 %; LYMPH % 36.3 %; LYMPH ABS # 2.66 K/uL (1.2-3.4); MEAN CELL VOLUME 92.8 fL (80-100); MEAN CORPUSCULAR HEMOGLOBIN 32.1 pg (25-34); MEAN CORPUSCULAR HGB CONC 34.6 g/dl (32-36); MEAN PLATELET VOLUME 10.2 fL (7.4-10.4); MONO % 8.6 %; NEUT % 52.7 %; PLATELET COUNT 307 K/uL (130-400); RED BLOOD COUNT 4.33 M/uL (4.7-6.1); WHITE BLOOD COUNT 7.32 K/uL (4.8-10.8)
[2016-07-24 15:00] LABS: ALT/SGPT 28 U/L (12-78); AST/SGOT 16 U/L (15-37); BLOOD UREA NITROGEN 10 mg/dl (7-18); CARBON DIOXIDE 27 mmol/L (21-32); CHLORIDE 111 mmol/L (98-107); CREATININE 0.77 mg/dl (0.60-1.40); GLUCOSE 93 mg/dl (70-99); POTASSIUM 4.3 mmol/L (3.5-5.1); SODIUM 144 mmol/L (136-145)
[2016-07-24 15:10] LABS: ALB/GLOB RATIO 1.1 (0.9-2); ALKALINE PHOSPHATASE 89 U/L (45-117)
== END ==
LOC: C.LABBC 11:52
PROVIDERS: ATTEND Internal Medicine
DX: I77.4 Celiac artery compression syndrome (principal); E04.1 Nontoxic single thyroid nodule

== ENCOUNTER → 2016-10-07 | Day surgery (SDC) | payer OTHER, MEDICARE ==
[2016-09-20 11:24] VITALS: Ht 170.2 cm; Wt 77.7 kg
[~2016-10-07] VITALS: Ht 170.2 cm; Wt 77.7 kg
[~2016-10-07] MED LIST changes: -ALPR-411 PO; -GLUCTAB7 PO; -ISR/30 PO; +LIDOCAINE HCL 2% 2 ML VIAL (20MG/ML) ONE; -ONDA4TAB46 PO; -OXYC1CAP5 PO; +PHENYLEPHRINE HCL INJ 10 MG/ML VIAL ONE; -PRAV80TA2 PO; +PROPOFOL IV EMULSION 10 MG/ML 20 ML VIAL IV ONE; -RSTOPS OP
[2016-10-07 08:30] VITALS: TEMP 36.7
--- NOTE | 2016-10-07 08:49 | Endo History and Physical ---
History & Physical Date of Service: Oct 07, 2016. Chief Complaint: screening Referring Physician: Dr. Rosales History of Present Illness 71 yo CM who presents for screening colonoscopy. Past Medical History Anxiety, Reflux, High Cholesterol, CABG, Heart Disease, Hypertension, Thyroid Disease, Depression, SD Past Surgical History Hx Cardiac Surgery: Yes (MULTIPLE HEART CATHS, STENTS X1; CABG X4 VESSELS) Hx Internal Defibrillator: Yes () Hx Pacemaker: Yes () Hx Abdominal Surgery: Yes ("STENT FOR ARTERY THAT GOES TO INTESTINES", HERNIA REPAIR) Hx of Implantable Prosthesis: No Hx Post-Op Nausea and Vomiting: No Hx Cancer Surgery: No Hx Thoracic Surgery: No Hx Orthopedic: Yes (CERVICAL SPINE X2 (FUSION C3-4-5 AND FULL ROM)) Hx Urinary Tract Surgery: No Family History None Social History Smoking Status: Former Smoker Hx Substance Use: No Hx Alcohol Use: No Allergies Coded Allergies: BEE STING (Verified Allergy, Severe, CARDIAC ARREST, 09/20/16) NO KNOWN DRUG ALLERGIES (Verified Allergy, Unknown, ., 09/20/16) Current Medications Reported Home Medications Medications Dose Route/Sig Max Daily Dose Days Date Category Tums (Calcium Carbonate (Antacid)) 500 Mg Chw 1 Tab PO UD PRN 09/20/16 Reported Restasis (Cyclosporine (Ophth)) 0.05 % Emu 1 Drop OP BID PRN 09/20/16 Reported Probiotic (Probiotic Product) 1 Tab Tab 1 Tab PO BID 09/20/16 Reported Pepto-Bismol (Bismuth Subsalicylate) 262 Mg Chw 1 Tab PO UD PRN 09/20/16 Reported Imdur Ext Rel (Isosorbide Mononitrate) 30 Mg Ertab 30 Mg PO QAM 09/20/16 Reported Glucosamine Chondroitin M (Xkpfthfkbqj-Hfjdmcdnndt-Xru C-) 1 Cap Cap 1 Cap PO QAM 09/20/16 Reported Plavix (Clopidogrel Bisulfate) 75 Mg Tab 75 Mg PO QAM 09/20/16 Reported Lipitor (Atorvastatin Calcium) 40 Mg Tab 40 Mg PO QPM 09/20/16 Reported Xanax (Alprazolam) 0.25 Mg Tab 0.25 Mg PO DAILY PRN 09/20/16 Reported Systane Ultra (Polyethylene Glycol-Propylene) 1 [place]ney 1 Drops OP QID PRN 06/13/16 Reported Imodium (Loperamide HCl) 2 Mg Cap 2 Mg PO QID PRN 06/13/16 Reported Lexapro (Escitalopram Oxalate) 10 Mg Tab 10 Mg PO QPM 06/13/16 Reported Potassium Chloride Er (Potassium Chloride) 10 Meq Cap 10 Meq PO QAM 06/13/16 Reported Toprol-Xl (Metoprolol Succinate) 25 Mg Tabcr 25 Mg PO BID 06/13/16 Reported Lasix (Furosemide) 20 Mg Tab 20 Mg PO QAM 06/13/16 Reported [place]-3 (Fish Oil) 1 Ea Cap 1,200 Mg PO QAM 06/13/16 Reported Neurontin (Gabapentin) 100 Mg Cap 100 Mg PO BID 10/26/15 Reported Allergy (Loratadine) 10 Mg Tab 10 Mg PO DAILY PRN 10/26/15 Reported Floranex (Lactobacillus) 1 Tab Tab 1 Tab PO NOON 10/26/15 Reported Zinc (Zinc Gluconate) 50 Mg Tab 50 Mg PO DAILY PRN 10/26/15 Reported Zestril (Lisinopril) 5 Mg Tab 5 Mg PO QPM 09/22/14 Reported Melatonin Tr (Melatonin) 10 Mg Tab 5-10 Mg PO HS PRN 09/22/14 Reported Methimazole (Methimazole) 5 Mg Tab 5 Mg PO HS 12/06/13 Reported Vitamin C (Ascorbic Acid) 1,000 Mg Tab 1,000 Mg PO QAM 12/06/13 Reported Tylenol Arthitis Ext Rel (Acetaminophen) 650 Mg Ertab 2 Tabs PO HS 11/12/13 Reported Multivitamin (Multivitamins) Tab 1 Tab PO QAM 11/12/13 Reported Epipen (Epinephrine) 0.3 Mg/0.3 Ml Inj 0.3 Mg IM UD PRN 11/12/13 Reported Aspirin Ec (Aspirin) 81 Mg Tab 81 Mg PO QAM 11/12/13 Reported Vital Signs Weight (Kilograms): 77.73 Height (Feet): 5 Height (Inches): 7 Date Time Temp Pulse Resp B/P (MAP) Pulse Ox O2 Delivery O2 Flow Rate FiO2 10/07/16 08:30 36.7 71 16 148/103 (118) 95 Room Air Physical Exam General Appearance: WD/WN, no apparent distress Respiratory/Chest: Auscultation: breath sounds normal Cardiovascular: Heart Auscultation: RRR Abdomen: Bowel Sounds: normal Inspection & Palpation: soft, non-distended, no tenderness, guarding & rebound Assessment and Plan Assessment: 71 yo CM who presents for screening colonoscopy. Plan: Proceed with colonoscopy.
--- NOTE | 2016-10-07 09:21 | Discharge Instructions ---
Endoscopy Patient Instructions Date / Procedure(s) Performed Oct 07, 2016. Colonoscopy Allergy Information Coded Allergies: BEE STING (Verified Allergy, Severe, CARDIAC ARREST, 09/20/16) NO KNOWN DRUG ALLERGIES (Verified Allergy, Unknown, ., 09/20/16) Discharge Date / Findings Oct 07, 2016. Diverticulosis Internal hemorrhoids Medication Instructions Stopped Medication(s): last dose Plavix Sunday 10/01,ASA Wednesday 10/04 OK to resume all medications today as prescribed Reported Home Medications Medications Dose Route/Sig Max Daily Dose Days Date Category Tums (Calcium Carbonate (Antacid)) 500 Mg Chw 1 Tab PO UD PRN 09/20/16 Reported Restasis (Cyclosporine (Ophth)) 0.05 % Emu 1 Drop OP BID PRN 09/20/16 Reported Probiotic (Probiotic Product) 1 Tab Tab 1 Tab PO BID 09/20/16 Reported Pepto-Bismol (Bismuth Subsalicylate) 262 Mg Chw 1 Tab PO UD PRN 09/20/16 Reported Imdur Ext Rel (Isosorbide Mononitrate) 30 Mg Ertab 30 Mg PO QAM 09/20/16 Reported Glucosamine Chondroitin M (Dscodfuwrpv-Rizumnazwow-Ske C-) 1 Cap Cap 1 Cap PO QAM 09/20/16 Reported Plavix (Clopidogrel Bisulfate) 75 Mg Tab 75 Mg PO QAM 09/20/16 Reported Lipitor (Atorvastatin Calcium) 40 Mg Tab 40 Mg PO QPM 09/20/16 Reported Xanax (Alprazolam) 0.25 Mg Tab 0.25 Mg PO DAILY PRN 09/20/16 Reported Systane Ultra (Polyethylene Glycol-Propylene) 1 [place]ney 1 Drops OP QID PRN 06/13/16 Reported Imodium (Loperamide HCl) 2 Mg Cap 2 Mg PO QID PRN 06/13/16 Reported Lexapro (Escitalopram Oxalate) 10 Mg Tab 10 Mg PO QPM 06/13/16 Reported Potassium Chloride Er (Potassium Chloride) 10 Meq Cap 10 Meq PO QAM 06/13/16 Reported Toprol-Xl (Metoprolol Succinate) 25 Mg Tabcr 25 Mg PO BID 06/13/16 Reported Lasix (Furosemide) 20 Mg Tab 20 Mg PO QAM 06/13/16 Reported [place]-3 (Fish Oil) 1 Ea Cap 1,200 Mg PO QAM 06/13/16 Reported Neurontin (Gabapentin) 100 Mg Cap 100 Mg PO BID 10/26/15 Reported Allergy (Loratadine) 10 Mg Tab 10 Mg PO DAILY PRN 10/26/15 Reported Floranex (Lactobacillus) 1 Tab Tab 1 Tab PO NOON 10/26/15 Reported Zinc (Zinc Gluconate) 50 Mg Tab 50 Mg PO DAILY PRN 10/26/15 Reported Zestril (Lisinopril) 5 Mg Tab 5 Mg PO QPM 09/22/14 Reported Melatonin Tr (Melatonin) 10 Mg Tab 5-10 Mg PO HS PRN 09/22/14 Reported Methimazole (Methimazole) 5 Mg Tab 5 Mg PO HS 12/06/13 Reported Vitamin C (Ascorbic Acid) 1,000 Mg Tab 1,000 Mg PO QAM 12/06/13 Reported Tylenol Arthitis Ext Rel (Acetaminophen) 650 Mg Ertab 2 Tabs PO HS 11/12/13 Reported Multivitamin (Multivitamins) Tab 1 Tab PO QAM 11/12/13 Reported Epipen (Epinephrine) 0.3 Mg/0.3 Ml Inj 0.3 Mg IM UD PRN 11/12/13 Reported Aspirin Ec (Aspirin) 81 Mg Tab 81 Mg PO QAM 11/12/13 Reported Provider Instructions Activity Restrictions - No exercising or heavy lifting for 24 hours. - Do not drink alcohol the day of the procedure. - Do not drive a car or operate machinery until the day after the procedure. - Do not make any important decisions or sign important papers in 24 hours after the procedure. Following Day: - Return to full activity which may include returning to work/school. Diet Start your diet with liquids and light foods (jello, soup, juice, toast). Then eat your usual diet if not nauseated. Treatment For Common After Affects For mild abdominal pain, bloating, or excessive gas: - Rest - Eat lightly - Lie on right side Follow-Up Information Follow-up with Dr. Rosales as scheduled Anesthesia Information What You Should Know You have had a procedure that required some medicine to reduce anxiety and discomfort. This treatment is called moderate sedation. After receiving the treatment, you may be sleepy, but you will be able to breathe on your own. The effects of the treatment may last for several hours. Follow these instructions along with Activity/Diet recommendations noted above: * Do NOT do anything where dizziness or clumsiness would be dangerous. * Rest quietly at home today, then you can be up and about tomorrow. * Have a responsible person stay with you the rest of today. * You may have had an I.V. today. If so, you may take the dressing off later today. Recommendations Call your doctor if: * Trouble breathing * Continuous vomiting for more than 24 hours * Temperature above 101 degrees * Severe abdominal pain or bloating * Pain not relieved by pain medicine ordered * There is increased drainage or redness from any incision * A large amount of rectal bleeding greater than 2-3 tablespoons. (If you had a polyp/s removed or have hemorrhoids, a small amount of blood - from the rectum is to be expected.) * You have any unanswered questions or concerns. IN THE EVENT OF A SERIOUS EMERGENCY, GO TO THE NEAREST EMERGENCY ROOM Your discharge instructions were prepared by provider Jordon Ceballos. Patient Instructions Signature Page Lg Carias Patient (or Guardian) Signature/Date: I have read and understand the instructions given to me by my caregivers. Caregiver/RN/Doctor Signature/Date: The above-named patient and/or guardian has received patient instructions on this date. + Original Patient Signature Page (only) stays with chart. Please make copy for patient.
--- NOTE | 2016-10-07 09:28 | GI REPORT ---
Procedure Date: 10/07/2016 9:05 AM Procedure: Colonoscopy Indications: Screening for colorectal malignant neoplasm Medicines: Monitored Anesthesia Care Complications: No immediate complications. Estimated Blood Loss: Estimated blood loss: none. Procedure: Pre-Anesthesia Assessment: - Prior to the procedure, a History and Physical was performed, and patient medications and allergies were reviewed. The patient's tolerance of previous anesthesia was also reviewed. The risks and benefits of the procedure and the sedation options and risks were discussed with the patient. All questions were answered, and informed consent was obtained. Prior Anticoagulants: The patient last took aspirin 1 day and Plavix (clopidogrel) 5 days prior to the procedure. ASA Grade Assessment: III - A patient with severe systemic disease. After reviewing the risks and benefits, the patient was deemed in satisfactory condition to undergo the procedure. After I obtained informed consent, the scope was passed under direct vision. Throughout the procedure, the patient's blood pressure, pulse, and oxygen saturations were monitored continuously. The scope was introduced through the anus and advanced to the terminal ileum. The colonoscopy was performed without difficulty. The patient tolerated the procedure well. The quality of the bowel preparation was good. The terminal ileum, ileocecal valve, appendiceal orifice, and rectum were photographed. Findings: Scattered small-mouthed diverticula were found in the entire colon. Non-bleeding internal hemorrhoids were found during retroflexion. The hemorrhoids were small. Impression: - Diverticulosis in the entire examined colon. - Non-bleeding internal hemorrhoids. - No specimens collected. Recommendation: - Resume previous diet. - Continue present medications. - No repeat colonoscopy due to age and the absence of advanced adenomas. - Return to primary care physician as previously scheduled. Jordon Ceballos, 10/07/2016 9:27:44 AM This report has been signed electronically. Note Initiated On: 10/07/2016 9:05 AM I attest to the content of the Intraoperative Record and orders documented therein, exceptions below
--- NOTE | 2016-10-07 09:51 | Anesthesiology Progress Note ---
Anesthesia Post Op Note Date & Time Oct 07, 2016 at 09:50 Vital Signs Pain Intensity: 0 Vital Signs Past 12 Hours Date Time Temp Pulse Resp B/P (MAP) Pulse Ox O2 Delivery O2 Flow Rate FiO2 10/07/16 09:40 60 18 132/82 (99) 94 Room Air 10/07/16 09:25 68 20 119/63 (81) 96 Room Air 10/07/16 08:30 36.7 71 16 148/103 (118) 95 Room Air Notes Mental Status: alert / awake / arousable, participated in evaluation Pt Amnestic to Procedure: Yes Nausea / Vomiting: adequately controlled Pain: adequately controlled Airway Patency, RR, SpO2: stable & adequate BP & HR: stable & adequate Hydration State: stable & adequate Anesthetic Complications: no major complications apparent
[2016-10-07 09:55] VITALS: BP 143/73; PULSE 60; O2SAT 94
== END | disposition home or self-care (01) ==
LOC: C.GI 08:22
PROVIDERS: ATTEND Internal Medicine
DX: Z12.11 Encounter for screening for malignant neoplasm of colon (principal); K57.30 Diverticulosis of large intestine without perforation or abscess without bleeding; F41.9 Anxiety disorder, unspecified; K21.9 Gastro-esophageal reflux disease without esophagitis; E78.00 Pure hypercholesterolemia, unspecified; Z95.5 Presence of coronary angioplasty implant and graft; I10 Essential (primary) hypertension; F32.9 Major depressive disorder, single episode, unspecified; I25.2 Old myocardial infarction; Z98.1 Arthrodesis status; Z87.891 Personal history of nicotine dependence; Z79.82 Long term (current) use of aspirin; I25.10 Atherosclerotic heart disease of native coronary artery without angina pectoris; Z95.0 Presence of cardiac pacemaker; I48.91 Unspecified atrial fibrillation; N40.0 Benign prostatic hyperplasia without lower urinary tract symptoms; Z95.810 Presence of automatic (implantable) cardiac defibrillator

== ENCOUNTER → 2016-11-04 | Outpatient (CLI) | payer OTHER, MEDICARE ==
[~2016-11-04] MED LIST changes: -LIDOCAINE HCL 2% 2 ML VIAL (20MG/ML) ONE; -PHENYLEPHRINE HCL INJ 10 MG/ML VIAL ONE; -PROPOFOL IV EMULSION 10 MG/ML 20 ML VIAL IV ONE
[2016-11-04 11:03] LABS: BASO % 0.5 %; BASO ABS # 0.03 K/uL (0-0.2); COMPLETE YES; EOS % 3.4 %; HEMATOCRIT 44.1 % (42-52); IG% 0.2 %; LYMPH % 41.8 %; LYMPH ABS # 2.74 K/uL (1.2-3.4); MEAN CELL VOLUME 92.3 fL (80-100); MEAN CORPUSCULAR HEMOGLOBIN 31.8 pg (25-34); MEAN CORPUSCULAR HGB CONC 34.5 g/dl (32-36); MONO % 12.8 %; NEUT % 41.3 %; PLATELET COUNT 299 K/uL (130-400); RED BLOOD COUNT 4.78 M/uL (4.7-6.1); WHITE BLOOD COUNT 6.56 K/uL (4.8-10.8)
[2016-11-04 11:23] LABS: ALT/SGPT 25 U/L (12-78); AST/SGOT 16 U/L (15-37); BLOOD UREA NITROGEN 16 mg/dl (7-18); BUN/CREATININE RATIO 18.9 (10-20); CALCIUM 9.1 mg/dl (8.5-10.1); CARBON DIOXIDE 27 mmol/L (21-32); CHLORIDE 108 mmol/L (98-107); CHOLESTEROL 135 mg/dl (0-200); CREATININE 0.84 mg/dl (0.60-1.40); GLUCOSE 90 mg/dl (70-99); POTASSIUM 4.2 mmol/L (3.5-5.1); SODIUM 140 mmol/L (136-145); TRIGLYCERIDES 84 mg/dl (0-150); VERY LOW DENSITY LIPOPROT CALC 17 mg/dl
[2016-11-04 11:27] LABS: CHOLESTEROL/HDL RATIO 2.5; FERRITIN 42.7 ng/ml (8.0-388.0); HDL CHOLESTEROL 54 mg/dl; LDL CHOLESTEROL CALCULATED 64 mg/dl
== END | disposition home or self-care (01) ==
LOC: C.LABBC 08:57
PROVIDERS: ATTEND Internal Medicine
DX: E78.5 Hyperlipidemia, unspecified (principal); K55.9 Vascular disorder of intestine, unspecified

== ENCOUNTER → 2017-04-18 | Outpatient (CLI) | payer OTHER, MEDICARE ==
[2017-04-18 14:18] LABS: ALT/SGPT 32 U/L (12-78); BLOOD UREA NITROGEN 17 mg/dl (7-18); CALCIUM 9.1 mg/dl (8.5-10.1); CARBON DIOXIDE 28 mmol/L (21-32); CHOLESTEROL 120 mg/dl (0-200); CREATININE 0.83 mg/dl (0.60-1.40); GLUCOSE 89 mg/dl (70-99); SODIUM 141 mmol/L (136-145)
[2017-04-18 14:22] LABS: AST/SGOT 20 U/L (15-37); LDL CHOLESTEROL CALCULATED 54 mg/dl
== END | disposition home or self-care (01) ==
LOC: C.LABBC 09:35
PROVIDERS: ATTEND Internal Medicine
DX: N40.0 Benign prostatic hyperplasia without lower urinary tract symptoms (principal); I25.10 Atherosclerotic heart disease of native coronary artery without angina pectoris; I77.1 Stricture of artery

== ENCOUNTER 2023-07-04 05:28 | Inpatient (IN) ==
--- NOTE | 2023-06-09 14:07 | PAT Medication Instructions ---
Medication Instructions Date of Service June 09, 2023 Home Medications Medication Instructions Recorded epinephrine 0.3 mg/0.3 mL 0.3 mg (0.3 mL) IM UD PRN 01/14/22 injection, auto-injector anaphylaxis #1 ea Medication List: acetaminophen 650 mg tablet,extended release 1,300 mg PO HS PRN pain ascorbic acid (vitamin C) 1,000 mg tablet 1 gm PO QAM aspirin 81 mg tablet 81 mg PO QAM atorvastatin 40 mg tablet 40 mg PO PM calcium carbonate 200 mg calcium (500 mg) chewable tablet (Tums) 200 mg PO UD PRN Indigestion clopidogrel 75 mg tablet 75 mg PO QAM cyclosporine 0.05 % eye drops 1 drp ophthalmic (eye) Q12H escitalopram oxalate 20 mg tablet (Lexapro) 20 mg PO QAM furosemide 20 mg tablet 20 mg PO QAM gabapentin 100 mg capsule 100 mg PO HS ounksreewkf-tee-dhqeifygf-vitC capsule (Glucosamine Complex-MSM capsule) 1 cap PO DAILY isosorbide mononitrate 60 mg tablet,extended release 24 hr 60 mg PO QAM lactobacillus combination no.8 3 billion cell capsule (Adult Probiotic) 3,000 mmu cells PO QAM lisinopril 5 mg tablet 5 mg PO PM loratadine 10 mg tablet 10 mg PO DAILY PRN allergy symptoms multivitamin with iron (Daily Multiple Vitamins with Iron tablet) 1 tab PO QAM omega-3 fatty acids 1,000 mg capsule (Fish Oil Concentrate) 1,000 mg PO QAM peg 400-propylene glycol 0.4 %-0.3 % eye drops 1 drops ophthalmic (eye) UD PRN dry eye(s) potassium chloride 10 mEq capsule,extended release 10 meq PO QAM zinc gluconate 50 mg tablet 50 mg PO QAM PRN winter fluticasone propionate 50 mcg/actuation nasal spray,suspension 1 spray intranasal DAILY epinephrine 0.3 mg/0.3 mL injection, auto-injector 0.3 mg (0.3 mL) IM UD PRN anaphylaxis metoprolol succinate 25 mg tablet,extended release 24 hr See Rx Instructions PO BID MEDICATION INSTRUCTIONS: Continue as directed fluticasone propionate 50 mcg/actuation nasal spray,suspension 1 spray intranasal DAILY epinephrine 0.3 mg/0.3 mL injection, auto-injector 0.3 mg (0.3 mL) IM UD PRN anaphylaxis cyclosporine 0.05 % eye drops 1 drp ophthalmic (eye) Q12H peg 400-propylene glycol 0.4 %-0.3 % eye drops 1 drops ophthalmic (eye) UD PRN dry eye(s) ASK your prescriber and surgeon clopidogrel 75 mg tablet 75 mg PO QAM (if receiving spinal anesthesia: will need to hold Plavix/clopidogrel for at least 7 days prior to surgery) aspirin 81 mg tablet 81 mg PO QAM STOP taking 2 weeks before surgery omega-3 fatty acids 1,000 mg capsule (Fish Oil Concentrate) 1,000 mg PO QAM hzgnrwjmreb-yrd-ocgfvywnd-vitC capsule (Glucosamine Complex-MSM capsule) 1 cap PO DAILY DO NOT take the morning of surgery potassium chloride 10 mEq capsule,extended release 10 meq PO QAM loratadine 10 mg tablet 10 mg PO DAILY PRN allergy symptoms furosemide 20 mg tablet 20 mg PO QAM ascorbic acid (vitamin C) 1,000 mg tablet 1 gm PO QAM multivitamin with iron (Daily Multiple Vitamins with Iron tablet) 1 tab PO QAM zinc gluconate 50 mg tablet 50 mg PO QAM PRN winter calcium carbonate 200 mg calcium (500 mg) chewable tablet (Tums) 200 mg PO UD PRN Indigestion lactobacillus combination no.8 3 billion cell capsule (Adult Probiotic) 3,000 mmu cells PO QAM Take morning of surgery With a small sip of water, OTHERWISE NOTHING TO EAT OR DRINK AFTER MIDNIGHT: metoprolol succinate 25 mg tablet,extended release 24 hr See Rx Instructions PO BID escitalopram oxalate 20 mg tablet (Lexapro) 20 mg PO QAM isosorbide mononitrate 60 mg tablet,extended release 24 hr 60 mg PO QAM Take evening before surgery metoprolol succinate 25 mg tablet,extended release 24 hr See Rx Instructions PO BID lisinopril 5 mg tablet 5 mg PO PM gabapentin 100 mg capsule 100 mg PO HS acetaminophen 650 mg tablet,extended release 1,300 mg PO HS PRN pain atorvastatin 40 mg tablet 40 mg PO PM calcium carbonate 200 mg calcium (500 mg) chewable tablet (Tums) 200 mg PO UD PRN Indigestion Other Notes If you have any questions please call us at [phone] or [phone] or [phone] or [phone]
--- NOTE | 2023-06-12 11:53 | Anesthesiology Consultation ---
Date of Service June 12, 2023 Assessment & Plan (1) Encounter for pre-operative examination: - Infectious disease screening: Per assessment on 06/12/23: No known infectious disease contacts or current infectious disease symptoms. No noted recent Covid positive test result. - Aortic stenosis: Echo 01/2023- Borderline to mild aortic stenosis per report - Cardiology visit (06/02/23): "Mild aortic stenosis per echo 01/2023.. Will plan on repeat echocardiogram in 1 year to reassess aortic valve gradients.. In terms of preop risk assessment, per Jose Eduardo Criteria, patient was counseled that he would be placed at a moderate risk (less than 6.6%)for any adverse perioperative cardiovascular events associated with orthopedic hip surgery surgery. Patient appears well compensated from a cardiac standpoint. Nuclear stress test in 2019 was stable. Echocardiogram with improved LVEF of 50%. EKG at today's ap pointment stable. Patient is on a good medication regime and no other cardiac testing or interventions would further lower that risk.Patient states he understands and is accepting ofthat risk and wishes to proceed with surgery. Given his significant history of coronary disease and peripheral arterial disease surgery should be completed in a hospital setting and dual antiplatelet therapy is recommended to be continued, however, if risk of bleeding is too great --okay to hold aspirin x5 days. Plavix should be continued without interruption. Aspirin should be resumed per the recommendations of the surgeon when bleeding risk is minimized. All other cardiac medication should be continued perioperatively. Okay to hold Lasix day of procedure. > Patient states that cardiology gave him verbal approval that if surgeon needed Plavix to be held, okay to do so but to then remain on ASA perioperatively. Reviewed with Dr. Whitt- will defer to surgeon/cardiology regarding ultimate ASA/Plavix perioperative instructions (patient will follow-up with surgeon/cardiology). Chart Review Chart Review: Acceptable Risk for Surgery and Patient seen in Pre Admission Testing Teaching & Discussion Pre-Anesthesia Teaching/Discussion Notes: Instructed NPO after midnight before surgery,except medications with 15 cc of water. Medication instructions provided according to the PAT guidelines. History Surgery Operation Date: 07/04/23 10:15 Proposed Procedures p Right Hip Endoscsopic Bursectomy, Gluteal Repair Possible Allograft Augmentation, - Natanael Gibbs MD s Possible Open Repair with Gluteus Marcio Transfer - Natanael Gibbs MD Height/Weight Height: 5 ft 8 in Weight: 80.6 kg Allergies Allergy/AdvReac Type Severity Reaction Status Date / Time bee venom protein (honey bee) Allergy Severe Cardiac Verified 06/11/23 10:23 arrest No Known Drug Allergies Allergy Unknown . Verified 06/05/23 12:35 Medications Home Medications Medication Instructions Recorded Confirmed Last Taken acetaminophen 650 mg 1,300 mg PO HS PRN pain 10/22/18 01/16/23 Unknown tablet,extended release ascorbic acid (vitamin C) 1,000 mg 1 gm PO QAM 10/22/18 06/05/23 Unknown tablet aspirin 81 mg tablet 81 mg PO QAM 10/22/18 06/05/23 Unknown atorvastatin 40 mg tablet 40 mg PO PM #90 tabs 10/22/18 06/05/23 Unknown calcium carbonate (Tums) 200 mg PO UD PRN Indigestion 10/22/18 06/05/23 Unknown clopidogrel 75 mg tablet 75 mg PO QAM 10/22/18 06/05/23 09/20/20 cyclosporine 0.05 % eye drops 1 drp ophthalmic (eye) Q12H 10/22/18 06/05/23 Unknown escitalopram oxalate 20 mg tablet 20 mg PO QAM 10/22/18 06/05/23 Unknown (Lexapro) furosemide 20 mg tablet 20 mg PO QAM #90 tabs 10/22/18 06/05/23 Unknown gabapentin 100 mg capsule 100 mg PO HS #60 caps 10/22/18 06/05/23 Unknown hvsgxsfghxg-bln-lxhjorlqp-vitC 1 cap PO DAILY 10/22/18 06/05/23 Unknown capsule (Glucosamine Complex-MSM capsule) isosorbide mononitrate 60 mg 60 mg PO QAM 10/22/18 06/05/23 Unknown tablet,extended release 24 hr lactobacillus combination no.8 3 3,000 mmu cells PO QAM 10/22/18 06/05/23 Unknown billion cell capsule (Adult Probiotic) lisinopril 5 mg tablet 5 mg PO PM #90 tabs 10/22/18 06/05/23 Unknown loratadine 10 mg tablet 10 mg PO DAILY PRN allergy symptoms 10/22/18 06/05/23 Unknown multivitamin with iron (Daily 1 tab PO QAM 10/22/18 06/05/23 Unknown Multiple Vitamins with Iron tablet) omega-3 fatty acids 1,000 mg 1,000 mg PO QAM 10/22/18 06/05/23 09/20/20 capsule (Fish Oil Concentrate) peg 400-propylene glycol 0.4 %-0.3 1 drops ophthalmic (eye) UD PRN 10/22/18 06/05/23 Unknown % eye drops dry eye(s) potassium chloride 10 mEq 10 meq PO QAM #30 caps 10/22/18 06/05/23 Unknown capsule,extended release zinc gluconate 50 mg tablet 50 mg PO QAM PRN winter10/22/18 06/05/23 Unknown fluticasone propionate 50 1 spray intranasal DAILY 09/27/20 06/05/23 Unknown mcg/actuation nasal spray,suspension epinephrine 0.3 mg/0.3 mL 0.3 mg (0.3 mL) IM UD PRN 01/14/22 06/05/23 Unknown injection, auto-injector anaphylaxis #1 ea metoprolol succinate 25 mg See Rx Instructions PO BID 07/17/22 06/05/23 Unknown tablet,extended release 24 hr Past Medical History Medical History Aortic stenosis Echo 01/2023: Borderline to mild aortic stenosis (EMMY 1.4-1.6cm2, MG 10.6mmhg) Arteriosclerotic heart disease (ASHD) Benign essential hypertension BPH (benign prostatic hyperplasia) S/P TURP CAD (coronary artery disease) CABG x4 (2005) Cardiac defibrillator in place Medtronic 2014 Follows w/Dr. Christy Celiac artery stenosis stents placed Degenerative disc disease History of cardiac arrest 2014 Hyperlipidemia Hypertension Hypothyroidism Myocardial Infarction 2014 Stenosis, cervical spine Superior mesenteric artery stenosis stents placed Exercise / Class Metabolic Activity III < 4 Walking/Shop/Light housework Past Family History Family History Father Heart disease Hypertension Mother Heart disease Hypertension Brother Stroke Heart disease Sister Diabetes Denies family history of Ovarian cancer Prostate cancer Myocardial infarction Breast cancer Lung cancer Colorectal cancer Past Surgical History Surgical History Fusion of spine C3-C5 fusion History of back surgery History of carpal tunnel release of both wrists B/L History of cataract surgery History of colonoscopy History of coronary artery bypass graft CABG x4 (2005) History of herniorrhaphy History of melanoma excision Face/ear History of nasal septoplasty History of surgery "Clavicle area" stent + subsequent "intestinal artery" History of testicular surgery Hx of transurethral resection of prostate S/P ICD (internal cardiac defibrillator) procedure PPM/defibrillator, 2015 Past Anesthesia History No Hx of Anesthesia Complications and No Family Hx of Anesthesia Complications History of PONV No Hx of PONV and No Hx of Motion Sickness Social History Smoking Status: Former smoker tobacco type: cigarettes Do You Dip or Chew Tobacco: No Smoking End Date: Quit 1987 Hx Alcohol Use: Yes alcohol intake frequency: holidays/special occasions only Hx Substance Use: No substance use type: does not use Review of Systems Patient denies chest pain, shortness of breath, fever, chills, cough, wheezing, palpitations. Physical Exam Vital Signs BP 121/73 P 66 TEMP 98.1 SP02 96%RA RESP 18 Physical Decreased cervical extension range of motion. Full TMJ range of motion. TMD > 3.5 finger breaths Mallampati Score 1 Dentition: intact, + implants Lungs: clear throughout to auscultation Cardiac: regular rate and rhythm, no murmurs noted Spine: normal Carotid arteries: negative bruit Extremities: no LE edema Lab Results Anesthesia Preop Results Results Anesthesia Widget: WBC 7.38 K/ul (4.8-10.8) 06/12/23 Hgb 15.2 g/dl (14.0-18.0) 06/12/23 Hct 43.8 % (42.0-52.0) 06/12/23 Plt 241 K/uL (130-400) 06/12/23 Na 138 mmol/L (136-145) 06/12/23 K 4.8 mmol/L (3.5-5.1) 06/12/23 Cl 105 mmol/L (98-107) 06/12/23 CO2 27 mmol/L (21-32) 06/12/23 BUN 15 mg/dl (6-23) 06/12/23 Creat 0.78 mg/dl (0.6-1.4) 06/12/23 Glucose Level 96 mg/dl (70-99(Fasting)) 06/12/23 Testing Electrocardiogram Date: 06/02/23 Atrial-paced rhythm at 63bpm. LVH with secondary QRS widening and repolarization abnormality. Inferior infarct (cited on or before 01/02/2017 per report). In ferior/anterior-lateral TWI. Echocardiogram Date: 02/04/23 LVEF 50-54%. Small sized basal inferior and posterior wall motion abnormality with HK to akinesis of the segments. Mild LAE. Grade I DD. The aortic valve is mildly calcified. Borderline to mild aortic stenosis (EMMY 1.4-1.6cm2, MG 10.6mmhg). Mild MR. Mildly enlarged aortic root and proximal ascending. Stress Test Date: 06/15/18 Type: nuclear Gated analysis reveals severe hypokinesis to akinesis of the inferior, inferior basilar and inferior lateral myocardium. Estimated LVEF 50%. Overall this pharmacologic nuclear stress test reveals an infarct in the inferior, inferior basilar and inferior lateral myocardium with mild to moderate julius-infarct ischemia. The study is similar to the previous study dated October 2015. Other Testing Pacer/ICD check Date: 04/11/23 Moder AAIR <=> DDDR. 13 months battery longevity. Total AGRICULTURAL EQUIPMENT TEST ENGINEER < 0.1%. -VS 1.5%. -AGRICULTURAL EQUIPMENT TEST ENGINEER < 0.1%. AP-VS 98.5%. AP-AGRICULTURAL EQUIPMENT TEST ENGINEER < 0.1%. Zero shocks.
[2023-07-04] MEDS: LR 500ML BOLUS, THEN 15ML/HR IV SCH (06:20)
[2023-07-04] MEDS: ACETAMINOPHEN 500 MG TAB PO SCH (06:20)
[2023-07-04] MEDS: LR 60ML/HR IV SCH (06:27)
[2023-07-04] MEDS ORDERED: ATROPINE SULFATE 0.1 MG/ML 10ML SYR IV PRN (06:41)
[2023-07-04] MEDS ORDERED: HYDROmorphone INJ 1 MG/ML SYRINGE IV PRN (06:41)
[2023-07-04] MEDS ORDERED: ePHEDrine sulfate 50 MG/ML AMP IV PRN (06:41)
[2023-07-04] MEDS ORDERED: PROPOFOL IV EMULSION 10 MG/ML 20 ML VIAL IV ONE (06:44)
[2023-07-04] MEDS ORDERED: fentaNYL citrate PF 100 MCG/2 ML VIAL ONE (06:44)
[2023-07-04] MEDS ORDERED: LIDOCAINE 2% 2 ML VIAL/AMP(20MG/ML) INFIL ONE ×2 (06:46→09:22)
--- NOTE | 2023-07-04 06:52 | History & Physical Report ---
Date of Service July 04, 2023 Assessment & Plan (1) Tear of gluteus medius tendon: (2) Tendinopathy of gluteus medius: (3) Greater trochanteric pain syndrome: Plan The informed consent was reviewed and confirmed. The patient and his this morning both agree that they want to proceed with the planned surgery: Right Hip Endoscopic Bursectomy, Gluteal Repair, Possible Allograft Augmentation, Open Repair with Gluteus Marcio Transfer. History of Present Illness Chief Complaint: Right hip pain and dysfunction Primary Care Provider: Jair Rosales MD 78-year-old male sustained a fall in the fall 2022 resulting in persistent limp and right hip pain. He was referred to me with subacute gluteus medius tear and ambulatory dysfunction. I offered elective gluteus medius repair endoscopically or open. He presents today to proceed with that plan we determined on June 01, 2022. No changes to his health history. He had to continue his Plavix but he was able to stop his aspirin. Allergies Allergy/AdvReac Type Severity Reaction Status Date / Time bee venom protein (honey bee) Allergy Severe Cardiac Verified 07/04/23 05:58 arrest No Known Drug Allergies Allergy Unknown . Verified 07/04/23 05:58 Home Medications Medication Instructions Recorded Confirmed Type acetaminophen 650 mg 1,300 mg PO HS PRN pain 10/22/18 07/04/23 History tablet,extended release ascorbic acid (vitamin C) 1,000 mg 1 gm PO QAM 10/22/18 07/04/23 History tablet aspirin 81 mg tablet 81 mg PO QAM 10/22/18 07/04/23 History atorvastatin 40 mg tablet 40 mg PO PM #90 tabs 10/22/18 07/04/23 History calcium carbonate (Tums) 200 mg PO UD PRN Indigestion 10/22/18 07/04/23 History clopidogrel 75 mg tablet 75 mg PO QAM 10/22/18 07/04/23 History cyclosporine 0.05 % eye drops 1 drp ophthalmic (eye) Q12H 10/22/18 07/04/23 History escitalopram oxalate 20 mg tablet 20 mg PO QAM 10/22/18 07/04/23 History (Lexapro) furosemide 20 mg tablet 20 mg PO QAM #90 tabs 10/22/18 07/04/23 History gabapentin 100 mg capsule 100 mg PO HS #60 caps 10/22/18 07/04/23 History [id number]-glg-omhmfvbdx-vitC 1 cap PO DAILY 10/22/18 07/04/23 History capsule (Glucosamine Complex-MSM capsule) isosorbide mononitrate 60 mg 60 mg PO QAM 10/22/18 07/04/23 History tablet,extended release 24 hr lactobacillus combination no.8 3 3,000 mmu cells PO QAM 10/22/18 07/04/23 History billion cell capsule (Adult Probiotic) lisinopril 5 mg tablet 5 mg PO PM #90 tabs 10/22/18 07/04/23 History loratadine 10 mg tablet 10 mg PO DAILY PRN allergy symptoms 10/22/18 07/04/23 Hi story multivitamin with iron (Daily 1 tab PO QAM 10/22/18 07/04/23 History Multiple Vitamins with Iron tablet) omega-3 fatty acids 1,000 mg 1,000 mg PO QAM 10/22/18 07/04/23 History capsule (Fish Oil Concentrate) peg 400-propylene glycol 0.4 %-0.3 1 drops ophthalmic (eye) UD PRN 10/22/18 07/04/23 History % eye drops dry eye(s) potassium chloride 10 mEq 10 meq PO QAM #30 caps 10/22/18 07/04/23 History capsule,extended release zinc gluconate 50 mg tablet 50 mg PO QAM PRN winter10/22/18 07/04/23 History fluticasone propionate 50 1 spray intranasal DAILY 09/27/20 07/04/23 History mcg/actuation nasal spray,suspension epinephrine 0.3 mg/0.3 mL 0.3 mg (0.3 mL) IM UD PRN 01/14/22 07/04/23 Rx injection, auto-injector anaphylaxis #1 ea metoprolol succinate 25 mg See Rx Instructions PO BID 07/17/22 07/04/23 History tablet,extended release 24 hr Past Med/Surg History Medical History Aortic stenosis Echo 01/2023: Borderline to mild aortic stenosis (EMMY 1.4-1.6cm2, MG 10.6mmhg) Cardiac defibrillator in place Medtronic 2015 Follows w/Dr. Christy History of cardiac arrest 2015 Arteriosclerotic heart disease (ASHD) Benign essential hypertension Celiac artery stenosis stents placed Stenosis, cervical spine Superior mesenteric artery stenosis stents placed CAD (coronary artery disease) CABG x4 (2005) BPH (benign prostatic hyperplasia) S/P TURP Degenerative disc disease Hypothyroidism Myocardial Infarction 2014 Hypertension Hyperlipidemia Surgical History Fusion of spine C3-C5 fusion S/P ICD (internal cardiac defibrillator) procedure PPM/defibrillator, 2014 History of testicular surgery History of back surgery History of nasal septoplasty History of cataract surgery History of colonoscopy History of herniorrhaphy History of melanoma excision Face/ear Hx of transurethral resection of prostate History of carpal tunnel release of both wrists B/L History of surgery "Clavicle area" stent + subsequent "intestinal artery" History of coronary artery bypass graft CABG x4 (2005) Family History Father Heart disease Hypertension Mother Heart disease Hypertension Brother Stroke Heart disease Sister Diabetes Denies family history of Ovarian cancer Prostate cancer Myocardial infarction Breast cancer Lung cancer Colorectal cancer Social History Smoking Status: Former smoker Tobacco Type: Cigarettes Age Started Using Tobacco: 15; Age Quit Using Tobacco: 43; packs per day: 2; Smoking End Date: Quit 1987; Second Hand Exposure: No; Do You Dip or Chew Tobacco: No; Tobacco Cessation Education Requested by Patient: No Hx Alcohol Use: Yes Hx Substance Use: No Preferred Language: Stateless Communication Ability: Effective Visual Impairment: No Limitations Hearing Ability: Normal Tromper Required: No Beliefs That Will Affect Care: None marital status: Current Living Situation: Spouse current occupational status: retired Other Information That Helps Us Care for You: No Feels Safe at Home: Yes Safety Concerns: Feels Safe At This Time Childhood Exposure to Second-Hand Smoke: Yes Dental Care, Regularly: Yes Physical Activity Frequency: 3-4 Times per Week Seatbelt Use: always Sunscreen Use: No Assistive Devices: Glasses and Walker Review of Systems All systems reviewed & are unremarkable except as noted in HPI & below. Physical Exam Right hip: No changes from exams on 06/02/2023. The overlying skin is without compromise. Constitutional WD/WN, vitals as above Respiratory normal respiratory effort; no respiratory distress Cardiovascular Extremities: normal capillary refill; no edema Chest (Breasts) Chest: normal inspection of chest Skin no rashes, warm and dry Psychiatric A+Ox3, euthymic affect Results & Data Results & Data Laboratory Results . Diagnostic Findings Diagnostic ultrasound and CT scan suggestive of full-thickness gluteus medius rupture. PG Care Time/CCT Total # of Minutes Spent Total Time Spent with Patient: Total time spent is greater than 50% in coordination of care (as documented) at patient's floor/unit and/or counseling patient: Coding Level of Care Code None Diagnoses Tear of gluteus medius tendon S76.019A Tendinopathy of gluteus medius M67.959 Greater trochanteric pain syndrome M25.559
[2023-07-04] MEDS: ceFAZolin 2000MG 2,000 MG/15 ML SYR IV SCH ×2 (07:03→15:13)
[2023-07-04] MEDS: TRANEXAMIC ACID 1,000 MG **IV Intra-op IV SCH (07:05)
[2023-07-04] MEDS: BUPIVACAINE/EPINEPHRINE 0.25% 1:200,000 30 ML VIAL ONE (07:29)
[2023-07-04] MEDS ORDERED: VASOPRESSIN 20 UNIT/ML VIAL ONE (07:30)
[2023-07-04] MEDS ORDERED: PHENYLEPHRINE HCL 10 MG/ML VIAL ONE ×2 (07:30→07:55)
[2023-07-04] MEDS ORDERED: SODIUM CHLORIDE 0.9% PF INJ 10 ML VIAL ONE ×2 (07:36)
[2023-07-04] MEDS ORDERED: EPINEPHrine INJ 1 MG/ML AMP ONE (07:36)
[2023-07-04] MEDS ORDERED: ONDANSETRON INJ 2 MG/ML 2 ML VIAL ONE (09:22)
[2023-07-04] MEDS: TRANEXAMIC ACID 1,000 MG **IV Pre-op IV SCH (09:45)
[2023-07-04] MEDS: VANCOMYCIN HCL 1000MG/20ML VIAL ONE (09:51)
[2023-07-04] MEDS ORDERED: ePHEDrine sulfate 50 MG/5 ML SYR ONE ×2 (09:59)
--- NOTE | 2023-07-04 10:22 | Communication Note ---
Date of Service: July 04, 2023 pt was hypotensive at beginning of the case. pt was initially resistant to ephedrine and vasopressin,. Pt required small boluses of epinepherine. pt was started on a phenylephedrine drip. pt maintained his bp on the infusion. He did require occasional supplementation. Pt was now responsive to ephedrine. Pt EKG was stable throughout at an A paced rhythm. Pt was already scheduled to stay over night and I recommended to Dr Gibbs that he be in a monitored bed because of the significant hypotension at the beginning of the case. Pt is currently stable.
[2023-07-04] MEDS ORDERED: PHENYLEPHRINE 100MCG/ML 10ML SYR IV ONE (10:25)
[2023-07-04] MEDS: ONDANSETRON INJ 2 MG/ML 2 ML VIAL IV PRN (11:00)
--- NOTE | 2023-07-04 11:09 | Operative Report ---
PG Post Operative Report Pre & Post Diagnosis Operation Date: 07/04/23 07:00 Pre-Op Diagnosis: (1) Tear of gluteus medius and minimus tendons (2) Tendinopathy of gluteus medius (3) Greater trochanteric pain syndrome Post-Op Diagnosis: (1) Tear of gluteus medius and minimus tendons (2) Tendinopathy of gluteus medius (3) Greater trochanteric pain syndrome I identified the patient and participated in the time-out.: Yes Procedure Operation Date: 07/04/23 07:00 Actual Procedures p Right Hip Endoscsopic Bursectomy, Open Repair Gluteus Medius with Allograft Augmentation(Right) - Natanael Gibbs MD Surgeon Natanael Gibbs MD Physician Specialist Orlando Hyman PA-C Estimated Blood Loss 50 Findings See Below Full-thickness tear of the gluteus medius resulting in exposed trochanteric footprint. The gluteus medius tissue is atrophied and retracted, prompting the indication for partial gluteus michelle transfer to reinforce the direct medius repair. A knotless linked medial seal, 4 anchor, double row construct was performed using 4 Arthrex 4.75 bio composite swivel lock anchors with knotless mechanism fiber tapes, incorporating the gluteus medius tendon and a portion of the transferred TFL and gluteus michelle. Specimens None Anesthesia Type General Complications none Disposition Accompanied Patient To Recovery: No Disposition: Recovery Room Description of Procedure On the day of surgery, the patient was greeted in the preoperative holding area. The informed consent was reviewed and confirmed by myself and the patient. The patient identified the surgical site and was marked by me. The patient was then turned over to anesthesia. He was taken to the operating place upon the OR table. Anesthesia was induced and the airway was secured. She was then placed in a left lateral decubitus position for right hip surgery. Beanbag positioner was used to secure the patient. An axillary roll was placed. All bony prominences were well-padded. Confirmation timeout was performed so that I can anesthetize the hip. He was placed in slight abduction and neutral rotation. Proposed portal sites were marked out. I then infused the skin area with approximately 10 cc of 0.25% Ma rcaine with epinephrine in the peritrochanteric region where the proposed portals will be. I also included the skin near the anterior lateral and distal anterolateral portals. The trochanteric ridge was palpated and a spinal needle was used to access the peritrochanteric space. The remainder of the 60 cc total of Marcaine solution was infused to the peritrochanteric space. The right lower extremity was then prepped and draped in the usual sterile fashion for open hip surgery. Surgical timeout was called by the circulating nurse and verified all present. Antibiotics and TXA had been infused, and equipment was available and functional. Anesthesia had noted some labile hypotension. Pressors were infused. Once there was an established control of the blood pressure, anesthesia permitted continuance of the case. I initiated case by creating a standard peritrochanteric superior portal. Trocar was used to enter under the IT band and palpate the vastus ridge. The needle was palpated with the scope trocar. The arthroscope was introduced in the area was insufflated with standard arthroscopic fluid. Visualization was established. The diagnostic endoscopy revealed a complete tear of the majority of the gluteus insertion on the greater trochanter footprint. An inferior trochanteric portal was established using a spinal needle for localization in an area where a planned incision would be carried down. The space was accessed using the torpedo shaver. The tuberosity footprint had some avulsion debris remaining which was debrided. There was abundant bursitis that was debrided. There was fibrinous loose body like material lying in the gutters superiorly. It did appear that the majority of the gluteus tendon construct was avulsed and retracted. There was abundant scar tissue which prevented assessment of the quality of the muscle. The arthroscope could enter along the anterior aspect of the hip capsule which was intact. The minimus was detached and there was a c rescent tear between the minimus and the medius. Due to the size of the tear, we opted to do an open incision to assess the quality of the muscle. Anesthesia confirmed that he was doing well with manage blood pressure. Lateral approach incision to the hip was planned out incorporating the arthroscopic portals. Sharp dissection was carried down through fat with hemostasis achieved with electrocautery. The IT band was cleared of fat by approximately 1 cm in preparation for closure. The IT band was thinned at the vastus ridge, potentially from the trauma or chronic external snapping hip or peritrochanteric pain syndrome. Full-thickness incision was made down through the IT band and carried to the gluteus fascia. This exposed the greater trochanter. The tear region was identified and easily found in the open fashion. The medius and minimus tendons were retracted in a crescent shape. There seem to be a secondary crescent between the minimus and medius tendons. The tendon layers were delaminated. Significant debridement and dissection was carried out using Metzenbaum scissors to mobilize these tendons from the underside of the IT band and gluteus michelle tissue as well as the capsule and underneath. The layers had to be debrided and to get organized. The Bovie was used to assess the medius muscle quality. It did appear healthy and contractile. The minimus was the same. There was sufficient excursion to get the tendon stump back down to the greater trochanter, and enough for a double row repair without excessive tension. For that reason, it was opted to do a primary repair with allograft augmentation due to tissue quality of the tendon stump. Allis clamps were used to tag the tendon stumps and mobilized tissue. The footprint was prepared using large curette as well as rongeur to remove degenerative fibrous insertional tissue to reveal bleeding bony bed for repair. Once the bony bed was prepped, the proximal row of our fixation was inserted. The medial row consisted of 3 Arthrex 2.6 mm knotless fiber tack anchors spread along the proximal footprint. The anchor sites were drilled using the cannula and gained good purchase. These proximal row sutures were passed together using Arthrex fiber link which was passed with the arthroscopic scorpion. The sutures were shuttled in a manner to incorporate the layers and coalesced them down onto the footprint from what seem to be the most anatomic fashion. We plan to bridge the medial row with a linked seal using the knotless construct that were incorporated graft. Lateral row fixation consisted of 5.5 mm Arthrex bio composite swivel locks that incorporated a fiber tape marginal convergence suture tails and a fiber link luggage tag from the lateral margin of the medius cuff. There was firm fixation that cover the footprint. Because of the quality of the tissue and the degree of degeneration, I opted for augmentation that would cover the repaired footprint and draped over the medius and minimus musculature. For that I used an Arthrex Arthrex graft which measured 2 x 7 cm with structural thickness. The graft was washed and then laid over the repair site. The knotless fixation was then passed using the scorpion, and then linked together to do a bridge compression. The suture tails were taken distally into 3.9 mm bio composite swivel locks with some luggage tag stitches on the lateral margin of the augment. This achieved firm bridge compression over the tendinous portion. #2 FiberWire was then used along the edges in interrupted and combined running fashion to attach the graft to the musculature and fascia. There were several horizontal mattress stitches in the mid substance of the graft. There was firm compression of the graft over the gluteal fascia and over the greater trochanter. The footprint was covered in its entirety. Hip was taken the range of motion to show solid fixation and appropriate tension of the repair and graft. Thorough saline irrigation was carried out of the repair site. Closure began with the IT band. #1 Vicryl suture was used to reapproximate the IT band layer. Interrupted [id number] sutures were used throughout the IT band and TFL/Gmax repair. Irrigation was carried out once more. #0 Vicryl was used to approximate the bursa tissue above the IT band. 0 Vicryl layer was then used in the deep fat and dermal layer. The dermis was approximated using interrupted 2- 0 Vicryl suture, followed by sagar. Wound was dressed with sterile Xeroform, plain gauze, ABD, and contained by Ioban. Patient tolerated procedure well, was extubated the operating room without complication, and transferred to the PACU in stable condition. Disposition: Patient will remain in the hospital for medical comanagement. He will be mobilized with PT and OT before evaluating discharge needs. He will follow the stable gluteus medius repair protocol without a brace. This will be partial weightbearing for 6 weeks, avoidance of active abduction and internal rotation, with avoidance of passive adduction and external rotation. Routine postoperative pain management. Follow-up in 2 weeks. Physician accounting administrative assistant attestation: Dee Clemens PA-C was present and scrubbed for the duration of the case. Skilled assistance was essential to prepping/draping, patient positioning, retraction, suture management, and assistance with wound closure. I attest to the content of the Intraoperative Record and any orders documented therein. Any exceptions are noted below.
--- NOTE | 2023-07-04 11:09 | Post Operative Brief Note ---
PG Immediate Post Op with CF Date of Surgery July 04, 2023 Pre & Post Diagnosis Operation Date: 07/04/23 07:00 Pre-Op Diagnosis: (1) Tear of gluteus medius tendon (2) Tendinopathy of gluteus medius (3) Greater trochanteric pain syndrome Post-Op Diagnosis: (1) Tear of gluteus medius tendon (2) Tendinopathy of gluteus medius (3) Greater trochanteric pain syndrome I identified the patient and participated in the time-out.: Yes Procedure Operation Date: 07/04/23 07:00 Actual Procedures p Right Hip Endoscopic Bursectomy, Open Repair Gluteus Medius with Allograft Augmentation(Right) - Natanael Gibbs MD Surgeon Natanael Gibbs MD Barrel Lapper Orlando Hyman PA-C Estimated Blood Loss 50 Findings Consistent with Post-Op Diagnosis Specimens Specimen Description: No specimen per surgeon Anesthesia Type General
[2023-07-04] MEDS: fentaNYL citrate PF 100 MCG/2 ML VIAL IV PRN (11:30)
--- NOTE | 2023-07-04 12:19 | Anesthesiology Progress Note ---
Date of Service July 04, 2023 Anesthesia Post Procedure Vital Signs Vital Signs: Temp Pulse Pulse Resp BP Pulse Ox O2 Del Method 07/04/23 12:15 60 14 123/75 93 Nasal Cannula 07/04/23 12:00 62 15 131/65 93 Nasal Cannula 07/04/23 11:50 36.4 C L 60 14 137/72 93 Nasal Cannula 07/04/23 11:40 62 13 145/77 H 91 Nasal Cannula 07/04/23 11:30 61 17 134/77 91 Nasal Cannula 07/04/23 11:20 62 14 145/82 H 92 Nasal Cannula 07/04/23 11:10 61 16 79/58 L 91 Nasal Cannula 07/04/23 11:00 64 13 85/61 L 91 Oxymask 07/04/23 10:50 61 15 92/60 L 96 Oxymask 07/04/23 10:41 36 C L 67 20 90/67 L 94 Oxymask 07/04/23 05:51 36.6 C 65 20 110/72 95 Room Air O2 Flow Rate 07/04/23 12:15 3 07/04/23 12:00 3 07/04/23 11:50 4 07/04/23 11:40 4 07/04/23 11:30 4 07/04/23 11:20 4 07/04/23 11:10 4 07/04/23 11:00 4 07/04/23 10:50 6 07/04/23 10:41 6 07/04/23 05:51 Pain Intensity Right Hip: Pain Intensity: 4 Transfer of Care Handoff Completed per policy Notes Mental Status: alert / awake / arousable and participated in evaluation Patient Amnestic to Procedure: Yes Nausea / Vomiting: adequately controlled Pain: adequately controlled Airway Patency, RR, SpO2: stable & adequate BP & HR: stable & adequate Hydration State: stable & adequate Anesthetic Complications: no major complications apparent and Pt Satisfied with anesthetic care
[2023-07-04] MEDS ORDERED: ACETAMINOPHEN 500 MG TAB PO PRN (13:32)
[2023-07-04] MEDS ORDERED: NON-FORMULARY MEDICATION (Zinc Gluconate 50 mg tablet) PO PRN (13:32)
[2023-07-04] MEDS ORDERED: LORATADINE 10 MG TAB PO PRN (13:32)
[2023-07-04] MEDS ORDERED: oxyCODONE HCL IR 5 MG TAB (IMMEDIATE RELEASE) PO PRN (13:32)
[2023-07-04] MEDS ORDERED: PEG PROPYLENE GLYCOL OP PRN (13:32)
[2023-07-04] MEDS ORDERED: HYDROmorphone INJ 0.5 MG/0.5 ML SYR IV PRN ×2 (13:32)
[2023-07-04] MEDS ORDERED: CALCIUM CARBONATE 500 MG CHEWABLE TAB PO PRN (13:32)
[2023-07-04] MEDS ORDERED: EPINEPHrine INJ 1 MG/ML AMP IM PRN (14:11)
[2023-07-04] MEDS ORDERED: ARTIFICIAL TEARS OP PRN (14:14)
--- NOTE | 2023-07-04 16:05 | Hospitalist Consultation ---
Date of Consultation July 04, 2023 Assessment & Plan (1) Tear of gluteus medius tendon: S/p operative repair 07/04/2023 Pain control, DVT prophylaxis, activity recommendations per primary team Intraoperative hypotension now resolved. BP 121/70 at time of assessment. Feels well with no chest pain or shortness of breath. Monitor overnight. Will hold lisinopril until 07/04. Suspect anesthesia induced, resolved. (2) Hypoxia: With bibasilar crackles which clear on deep inspiration. Patient appears near euvolemic perhaps slightly volume up Incentive spirometry given to patient at bedside, will continue to use this hourly. history of mildly reduced EF. Net inpatient balance +1550 cc. If oxygen requirement does not resolve -->+CXR and if congested +20mg lasix IV x1. Patient does have a history of mild On 2 L satting between 94-96% while at bedside. Titrate oxygen to goal greater than 90% No fever/chills/sweats. No evidence of infectious etiology/pneumonia, no wheezing (3) CAD (coronary artery disease): With history of cardiac arrest, CABG, and ICD placement with atrial placed baseline rhythm No chest pain, no chest pressure no signs of ACS preceding surgery or time bedside assessment Follow clinically Continue metoprolol, Plavix Lisinopril temporarily held due to hypotension, if BP remains stable may resume lisinopril 07/05/2023 (4) BPH (benign prostatic hyperplasia): Bladder scan every shift History of Present Illness Attending Physician: Natanael Gibbs MD History of Present Illness Rolly is an 78-year-old male with past medical history of CAD post CABG times 06/2005, cardiac arrest 2014 with subsequent ICD placement, left subclavian stenosis stent 2014, peripheral vascular disease, SMA stenting 2016, hyperlipidemia, hypertension and last EF 50-54% who presented for scheduled right hip bursectomy and open gluteus medius repair due to gluteus medius tendinopathy and a muscle tear. We are consulted for postoperative management after patient had intraoperative hypotension and was recommended for overnight observation. Per review of anesthesia notes patient was initially hypotensive at the case and with minimal response to ephedrine/vasopressin and required epinephrine boluses. Subsequently started on phenylephrine drip and adequate BP was maintained. Subsequently responded well to ephedrine and after transfer from the PACU was maintaining normotension with BP 121/70 at time of hospitalist reassessment. At time of bedside assessment Lg reports that he feels generally well. He notes he has some discomfort in his right hip and is still awaiting a brace so that he can move his leg and to better use the urinal but otherwise does not have acute concerns. He is on 2 L of oxygen satting between 94-96% at the bedside. He does not have a home oxygen requirement. He reports he does take Lasix 20 mg daily at home for history of AL/CHF but generally his fluid levels are well-controlled. He denies any chest pain or chest pressure either preceding his surgery or at time of assessment. He denies shortness of breath laying in bed. Denies fever/chills/sweats. Denies cough. Medical History: Reviewed Medications: Reviewed Surgical History: Reviewed Family history: Reviewed Allergies: Reviewed Social History: Reviewed Code Status: Full Allergies Allergy/AdvReac Type Severity Reaction Status Date / Time bee venom protein (honey bee) Allergy Severe Cardiac Verified 07/04/23 05:58 arrest No Known Drug Allergies Allergy Unknown . Verified 07/04/23 05:58 Home Medications Medication Instructions Recorded Confirmed Type acetaminophen 650 mg 1,300 mg PO HS PRN pain 10/22/18 07/04/23 History tablet,extended release ascorbic acid (vitamin C) 1,000 mg 1 gm PO QAM 10/22/18 07/04/23 History tablet aspirin 81 mg tablet 81 mg PO QAM 10/22/18 07/04/23 History atorvastatin 40 mg tablet 40 mg PO PM #90 tabs 10/22/18 07/04/23 History calcium carbonate (Tums) 200 mg PO UD PRN Indigestion 10/22/18 07/04/23 History clopidogrel 75 mg tablet 75 mg PO QAM 10/22/18 07/04/23 History cyclosporine 0.05 % eye drops 1 drp ophthalmic (eye) Q12H 10/22/18 07/04/23 History escitalopram oxalate 20 mg tablet 20 mg PO QAM 10/22/18 07/04/23 History (Lexapro) furosemide 20 mg tablet 20 mg PO QAM #90 tabs 10/22/18 07/04/23 History gabapentin 100 mg capsule 100 mg PO HS #60 caps 10/22/18 07/04/23 History vcnjrsjraca-pqt-yvdeljarf-vitC 1 cap PO DAILY 10/22/18 07/04/23 History capsule (Glucosamine Complex-MSM capsule) isosorbide mononitrate 60 mg 60 mg PO QAM 10/22/18 07/04/23 History tablet,extended release 24 hr lactobacillus combination no.8 3 3,000 mmu cells PO QAM 10/22/18 07/04/23 History billion cell capsule (Adult Probiotic) lisinopril 5 mg tablet 5 mg PO PM #90 tabs 10/22/18 07/04/23 History loratadine 10 mg tablet 10 mg PO DAILY PRN allergy symptoms 10/22/18 07/04/23 History multivitamin with iron (Daily 1 tab PO QAM 10/22/18 07/04/23 History Multiple Vitamins with Iron tablet) omega-3 fatty acids 1,000 mg 1,000 mg PO QAM 10/22/18 07/04/23 History capsule (Fish Oil Concentrate) peg 400-propylene glycol 0.4 %-0.3 1 drops ophthalmic (eye) UD PRN 10/22/18 07/04/23 History % eye drops dry eye(s) potassium chloride 10 mEq 10 meq PO QAM #30 caps 10/22/18 07/04/23 History capsule,extended release zinc gluconate 50 mg tablet 50 mg PO QAM PRN winter10/22/18 07/04/23 History fluticasone propionate 50 1 spray intranasal DAILY 09/27/20 07/04/23 History mcg/actuation nasal spray,suspension epinephrine 0.3 mg/0.3 mL 0.3 mg (0.3 mL) IM UD PRN 01/14/22 07/04/23 Rx injection, auto-injector anaphylaxis #1 ea metoprolol succinate 25 mg See Rx Instructions PO BID 07/17/22 07/04/23 History tablet,extended release 24 hr Patient History Medical History (Updated 07/04/23 @ 15:58 by Colin Ngo MD) Aortic stenosis Echo 01/2023: Borderline to mild aortic stenosis (EMMY 1.4-1.6cm2, MG 10.6mmhg) Cardiac defibrillator in place Medtronic 2014 Follows w/Dr. Christy History of cardiac arrest 2015 Arteriosclerotic heart disease (ASHD) Benign essential hypertension Celiac artery stenosis stents placed Stenosis, cervical spine Superior mesenteric artery stenosis stents placed CAD (coronary artery disease) CABG x4 (2005) BPH (benign prostatic hyperplasia) S/P TURP Degenerative disc disease Hypothyroidism Myocardial Infarction 2015 Hypertension Hyperlipidemia Surgical History Fusion of spine C3-C5 fusion S/P ICD (internal cardiac defibrillator) procedure PPM/defibrillator, 2014 History of testicular surgery History of back surgery History of nasal septoplasty History of cataract surgery History of colonoscopy History of herniorrhaphy History of melanoma excision Face/ear Hx of transurethral resection of prostate History of carpal tunnel release of both wrists B/L History of surgery "Clavicle area" stent + subsequent "intestinal artery" History of coronary artery bypass graft CABG x4 (2005) Family History Father Heart disease Hypertension Mother Heart disease Hypertension Brother Stroke Heart disease Sister Diabetes Denies family history of Ovarian cancer Prostate cancer Myocardial infarction Breast cancer Lung cancer Colorectal cancer Social History Smoking Status: Never smoker Tobacco Type: Cigarettes Age Started Using Tobacco: 15; Age Quit Using Tobacco: 43; packs per day: 2; Smoking End Date: Quit 1987; Second Hand Exposure: No; Do You Dip or Chew Tobacco: No; Tobacco Cessation Education Requested by Patient: No Hx Alcohol Use: No Hx Substance Use: No Preferred Language: Syrian Communication Ability: Effective Visual Impairment: No Limitations Hearing Ability: Normal Negative Turner Apprentice Required: No Beliefs That Will Affect Care: None marital status: Current Living Situation: Spouse current occupational status: retired Other Information That Helps Us Care for You: No Feels Safe at Home: Yes Safety Concerns: Feels Safe At This Time Childhood Exposure to Second-Hand Smoke: Yes Dental Care, Regularly: Yes Physical Activity Frequency: 3-4 Times per Week Seatbelt Use: always Sunscreen Use: No Assistive Devices: Glasses Physical Exam Physical Exam: General: A&Ox3. NAD. Cooperative. HEENT: Atraumatic, normocephalic. Pulm: Diminished, bibasilar crackles which clear on deep inspiration symmetrical chest rise. No increased work of breathing. No respiratory distress. On 2 L nasal cannula Cardiac: RRR, systolic murmur present. Radial pulses intact and symmetrical. Abdominal: Nontender, nondistended, soft. BS present. Extremities: Right hip with postsurgical dressing in place, C/D/I. Ankle dorsiflexion/plantarflexion 5/5 bilaterally, PT pulse intact bilaterally, sensation soft touch is intact in feet bilaterally. No signs of neurovascular compromise. Trace ankle edema is present. Results & Data Results & Data Vital Signs (Past 12 Hours) Vital Signs Temp Pulse Pulse Pulse Resp BP Pulse Ox 07/04/23 14:38 36.6 C 64 16 121/70 92 07/04/23 14:00 61 18 138/80 93 07/04/23 13:30 62 19 134/85 92 07/04/23 13:00 60 15 108/66 93 07/04/23 12:45 62 14 122/79 93 07/04/23 12:30 60 16 122/71 94 07/04/23 12:15 60 14 123/75 93 07/04/23 12:00 62 15 131/65 93 07/04/23 11:50 36.4 C L 60 14 137/72 93 07/04/23 11:40 62 13 145/77 H 91 07/04/23 11:30 61 17 134/77 91 07/04/23 11:20 62 14 145/82 H 92 07/04/23 11:10 61 16 79/58 L 91 07/04/23 11:00 64 13 85/61 L 91 07/04/23 10:50 61 15 92/60 L 96 07/04/23 10:41 36 C L 67 20 90/67 L 94 07/04/23 05:51 36.6 C 65 20 110/72 95 O2 Del Method O2 Flow Rate 07/04/23 14:38 Nasal Cannula 2 07/04/23 14:00 Nasal Cannula 3 07/04/23 13:30 Nasal Cannula 3 07/04/23 13:00 Nasal Cannula 3 07/04/23 12:45 Nasal Cannula 3 07/04/23 12:30 Nasal Cannula 3 07/04/23 12:15 Nasal Cannula 3 07/04/23 12:00 Nasal Cannula 3 07/04/23 11:50 Nasal Cannula 4 07/04/23 11:40 Nasal Cannula 4 07/04/23 11:30 Nasal Cannula 4 07/04/23 11:20 Nasal Cannula 4 07/04/23 11:10 Nasal Cannula 4 07/04/23 11:00 Oxymask 4 07/04/23 10:50 Oxymask 6 07/04/23 10:41 Oxymask 6 07/04/23 05:51 Room Air PG Care Time/CCT Total # of Minutes Spent Total Time Spent with Patient: Total time spent is greater than 50% in coordination of care (as documented) at patient's floor/unit and/or counseling patient: Coding Level of Care Code 12422 IN/OBS CONSULT LVL 4,60M Diagnoses Tear of gluteus medius tendon S76.019A Hypoxia R09.02 CAD (coronary artery disease) I25.10 BPH (benign prostatic hyperplasia) N40.0
[2023-07-04] MEDS: oxyCODONE HCL IR 5 MG TAB (IMMEDIATE RELEASE) PO PRN (18:28)
[2023-07-04] MEDS: ATORVASTATIN 40 MG TAB PO SCH (20:28)
[2023-07-04] MEDS: GABAPENTIN 100 MG CAP PO SCH (20:28)
[2023-07-04] MEDS: METOPROLOL SUCC 25MG EXT REL TAB PO SCH (20:28)
[2023-07-04] MEDS: lisinopril 5 MG TAB PO SCH (20:28)
[2023-07-05 06:42] LABS: Basophils # (auto) 0.05 K/uL (0.00-0.20); Basophils % (auto) 0.4 %; Eosinophils # (auto) 0.03 K/uL (0.00-0.50); Eosinophils % (auto) 0.2 %; Hematocrit (blood only) 42.3 % (42.0-52.0); Hemoglobin 14.6 g/dl (14.0-18.0); Immature Granulocytes # (auto) 0.05 K/uL (0.01-0.20); Immature Granulocytes % (auto) 0.4 %; Lymphocytes # (auto) 2.11 K/uL (1.20-3.40); Lymphocytes % (auto) 16.2 %; Mean Corpuscular Hemoglobin 33.2 pg (25.0-34.0); Mean Corpuscular Hgb Conc 34.5 g/dL (32.0-36.0); Mean Corpuscular Volume 96.1 fL (80.0-100.0); Mean Platelet Volume 10.1 fL (9.4-12.4); Monocytes # (auto) 1.27 K/uL (0.11-0.59); Monocytes % (auto) 9.8 %; Neutrophils # (auto) 9.49 K/uL (1.40-6.50); Platelet Count 253 K/uL (130-400); RDW Coefficient of Variation 12.9 % (11.5-14.5); RDW Standard Deviation 46.1 fL (36.4-46.3)
[2023-07-05 07:02] LABS: Calcium 9.1 mg/dl (8.6-10.3); Creatinine Clr Calc Pharmacy 60.9 ml/min; Est GFR (African American) 88.4 ml/min; Est GFR (Non-African American) 76.3 ml/min
--- NOTE | 2023-07-05 08:07 | Orthopedic Progress Note ---
Date of Service July 05, 2023 Assessment & Plan (1) History of hip surgery: POD 1 status post right open gluteus medius and minimus repair with allograft augmentation. Making progress as expected. Hospitalist consulted for medical comorbidities and perioperative hypotension. -Appreciate hospitalist management of hypertension and hypoxia -PT/OT consults: Partial weightbearing to the right hip with walker, avoid active hip abduction and external rotation, avoid passive external rotation and adduction stretch -Continue current pain management -Finish 24-hour perioperative antibiotic prophylaxis today -May be out of bed with assistance only -VTE PPx: Aspirin Dispo: PT and OT eval's today. Remain in hospital least another day to stabilize blood pressure and mobilize. Subjective Expected pain. Said he had a panic attack but was helped to his chair. Did not think that he got hurt at all. He was able to stand. Review of Systems All systems reviewed & are unremarkable except as noted in HPI & below. Physical Exam RLE: Dressing is clean dry and intact. Neurovascular intact. Constitutional WD/WN, vitals as above Respiratory normal respiratory effort; no respiratory distress Cardiovascular Extremities: normal capillary refill; no edema Chest (Breasts) Chest: normal inspection of chest Skin no rashes, warm and dry Psychiatric A+Ox3, euthymic affect Results & Data Results & Data Laboratory Results H & H 07/05/23 Range/Units 05:49 Hgb 14.6 (14.0-18.0) g/dl Hct 42.3 (42.0-52.0) % Diagnostic Findings . PG Care Time/CCT Total # of Minutes Spent Total Time Spent with Patient: Total time spent is greater than 50% in coordination of care (as documented) at patient's floor/unit and/or counseling patient: Coding Level of Care Code 97390 Post Operative Follow-Up Diagnoses History of hip surgery Z98.890
[2023-07-05] MEDS: CLOPIDOGREL BISULFATE 75 MG TAB PO SCH (08:12)
[2023-07-05] MEDS: CEROVITE ADV FORMULA TAB PO SCH (08:12)
[2023-07-05] MEDS: ASCORBIC ACID 500 MG TAB PO SCH (08:12)
[2023-07-05] MEDS: ADVANCED PROBIOTIC 625 MG CAPSULE PO SCH (08:12)
[2023-07-05] MEDS: GLUCOSAMINE SULFATE 500 MG CAP PO SCH (08:13)
[2023-07-05] MEDS: FLUTICASONE PROPIONATE NA SPR 16 GM BTL SCH (08:13)
[2023-07-05] MEDS: OMEGA-3 (PURIFIED FISH OIL) 1 GM CAP PO SCH (08:14)
[2023-07-05] MEDS: POTASSIUM CHLORIDE 10 MEQ TABCR PO SCH (08:14)
[2023-07-05] MEDS: ESCITALOPRAM OXALATE 20 MG TAB PO SCH (08:14)
[2023-07-05] MEDS: ASPIRIN 81 MG ECTAB PO SCH (08:14)
[2023-07-05] MEDS: FUROSEMIDE 20 MG TAB PO SCH (08:49)
[2023-07-05] MEDS: ISOSORBIDE MONO EXTENDED REL 60 MG TABCR PO SCH (08:49)
[2023-07-05] MEDS: SODIUM CHLORIDE 0.9% 500 ML IV SCH (08:52)
[2023-07-05] MEDS: SODIUM CHLORIDE 0.9% 1,000 ML IV SCH (09:51)
--- NOTE | 2023-07-05 12:47 | Hospitalist Progress Note ---
Date of Service July 05, 2023 Assessment & Plan (1) Tear of gluteus medius tendon: Plan: S/p operative repair 07/04/2023 Pain control, DVT prophylaxis, activity recommendations per primary team Consulted for intraoperative hypotension. - Hypotension in AM of 07/05/23. 500 ml bolus given, followed by 500 ml @ 80 ml/hr. - Concern about discordant BP and reduced radial pulses bilaterally. -- CTA chest 07/05/2023 revealed extensive calcified plaque within brachiocephalic trunk, which results in severe stenosis. The vessel appears near occluded. Patent left subclavian artery stent. No thoracic aortic dissection. -- Resumed anticoagulation with aspirin and Plavix today. - Patient reports anxiety and claustrophobia. Ativan 0.5mg Q4h PRN (2) Hypoxia: Plan: Continue incentive spirometry. Stable O2 sat at 93% on room air 07/05/2023. History of mildly reduced EF. If oxygen requirement does not resolve -->+CXR and if congested +20mg lasix IV x1. Patient does have a history of mild . No fever/chills/sweats. No evidence of infectious etiology/pneumonia, no wheezing (3) CAD (coronary artery disease): Plan: With history of cardiac arrest, CABG, and ICD placement with atrial placed baseline rhythm No chest pain, no chest pressure no signs of ACS preceding surgery or time bedside assessment Follow clinically Continue metoprolol, Plavix Lisinopril temporarily held due to hypotension, resumed on 07/05/2023 (4) BPH (benign prostatic hyperplasia): Plan: Bladder scan every shift Plan Chest CTA reveals extensive calcified atherosclerotic plaque within the brachiocephalic trunk. Recommend taking blood pressures and left arm for more accurate readings. Discussed with vascular and ortho. Resumed aspirin and Plavix. Patient no longer hypoxic, blood pressure stable. Ativan 0.5 mg every 4 hours as needed. Medicine will continue to follow. CODE STATUS: Full code Admission and Anticipated Discharge Date Admission Date: July 04, 2023 Subjective Patient seen and evaluated at bedside with . He reports that his po stoperative pain is under control. He does report intermittent panic attacks and generalized anxiety. Ativan was ordered as needed. This morning, patient had hypotension, given a bolus followed by maintenance fluids. Monitor hemoglobin in the morning for dilutional effect from IVF. Additionally, there was some discordant blood pressures between right and left arms with diminished radial pulses bilaterally, worse on the right side. CTA chest revealed extensive calcified atherosclerotic plaque within the brachiocephalic trunk, with the vessel appearing nearly occluded. No sign of thoracic aortic dissection. He denies any numbness, tingling, or symptoms of claudication in his right arm. Spoke with vascular surgery, who report that this does not require surgical intervention unless symptomatic. Manage with aspirin and Plavix. Discussed with Dr. Gibbs from [facility] who said anticoagulation can be resumed now. Physical Exam Physical Exam: General: No acute distress, nondiaphoretic, well-developed, well-nourished. Skin: The skin was without rashes, erythema, edema, or bruising. Cardiac: Regular rate and rhythm without gallops or rubs. Systolic murmur present. Decreased radial pulses bilaterally, more prominent on the right side. Pulm: Diminished breath sounds bilaterally. No wheezes, rales or rhonchi. No retractions or accessory muscle use. Abdominal: Positive bowel sounds x 4. Soft, nontender, without masses or organomegaly. No guarding or rebound tenderness. Neuro: A&O x3. No focal neurological deficits. Extremities: Right hip with postsurgical dressing in place, clear, dry, intact. PT pulse intact bilaterally, sensation soft touch is intact in feet bilaterally. No signs of neurovascular compromise. Trace ankle edema is present. Results & Data Results & Data Vital Signs (Past 12 Hours) Vital Signs Temp Pulse Pulse Resp BP BP Pulse Ox 07/05/23 12:33 142/60 H 86/54 L 07/05/23 11:55 36.3 C L 63 20 172/67 H 93 07/05/23 07:48 37.1 C 74 18 81/49 L 96 07/05/23 07:09 60 07/05/23 07:05 07/05/23 03:48 36.6 C 60 16 143/72 H 96 O2 Del Method O2 Flow Rate 07/05/23 12:33 07/05/23 11:55 Room Air 07/05/23 07:48 Nasal Cannula 2 07/05/23 07:09 07/05/23 07:05 Nasal Cannula 2 07/05/23 03:48 Room Air Laboratory Results Reviewed CBC Reviewed chemistries Diagnostic Findings Reviewed CTA Chest 07/05/23: FINDINGS: A left subclavian pacer/AICD is in place. There are median sternotomy wires. The heart is moderately enlarged. No pericardial effusion is present. There is extensive coronary artery calcification. Mild dilatation of the ascending aorta measuring 4 cm is noted. There is no thoracic aortic dissection. There is moderate plaque within the thoracic aorta. Note is made of extensive calcified plaque within the brachiocephalic trunk which results in severe stenosis. There is moderate plaque at the origin the right subclavian artery without stenosis. Extensive calcified plaque within the proximal right internal carotid artery is noted. This is suboptimally assessed on this exam but likely results in moderate stenosis. Left common carotid artery is patent. There is extensive plaque within the proximal left internal carotid artery, also suboptimally assessed on this exam. There is moderate to severe stenosis of the proximal left internal carotid artery. A subclavian artery stent is patent. The left clavian artery is patent. There is no thoracic lymphadenopathy. Subpleural opacities represent atelectasis. No consolidation is identified to suggest pneumonia. There is no pneumothorax or pleural effusion. IMPRESSION: 1. Extensive calcified atherosclerotic plaque within the brachiocephalic trunk which results in severe stenosis. The vessel appears near occluded. 2. Patent left subclavian artery stent. 3. No thoracic aortic dissection. 4. 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 These stenoses are suboptimally assessed on this chest CT. 5. Moderate cardiomegaly and extensive coronary calcification. Mild dilatation of the ascending aorta. PG Care Time/CCT Total # of Minutes Spent Total Time Spent with Patient: Total time spent is greater than 50% in coordination of care (as documented) at patient's floor/unit and/or counseling patient: Coding Level of Care Code 73440 SUB INP/OBS CARE 3/50MIN Diagnoses Tear of gluteus medius tendon S76.019A Hypoxia R09.02 CAD (coronary artery disease) I25.10 BPH (benign prostatic hyperplasia) N40.0
[2023-07-05] MEDS: LORazepam 0.5 MG TAB PO PRN (13:30)
[2023-07-05] MEDS: OPTIRAY 320 125ml IV ONE (14:01)
--- NOTE | 2023-07-05 14:21 | CT Scan Report ---
CT ANGIOGRAPHY OF THE CHEST CLINICAL HISTORY: Discordant blood pressure. COMPARISON STUDY: Chest radiograph April 22, 2022. FINDINGS: A left subclavian pacer/AICD is in place. There are median sternotomy wires. The heart is m oderately enlarged. No pericardial effusion is present. There is extensive coronary artery calcificat ion. Mild dilatation of the ascending aorta measuring 4 cm is noted. There is no thoracic aortic diss ection. There is moderate plaque within the thoracic aorta. Note is made of extensive calcified plaqu e within the brachiocephalic trunk which results in severe stenosis. There is moderate plaque at the origin the right subclavian artery without stenosis. Extensive calcified plaque within the proximal r ight internal carotid artery is noted. This is suboptimally assessed on this exam but likely results in moderate stenosis. Left common carotid artery is patent. There is extensive plaque within the prox imal left internal carotid artery, also suboptimally assessed on this exam. There is moderate to caleb re stenosis of the proximal left internal carotid artery. A subclavian artery stent is patent. The le ft clavian artery is patent. There is no thoracic lymphadenopathy. Subpleural opacities represent ate lectasis. No consolidation is identified to suggest pneumonia. There is no pneumothorax or pleural ef fusion. IMPRESSION: 1. Extensive calcified atherosclerotic plaque within the brachiocephalic trunk which results in sever e stenosis. The vessel appears near occluded. 2. Patent left subclavian artery stent. 3. No thoracic aortic dissection. 4. 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 These stenoses are suboptimally assessed on this chest CT. 5. Moderate cardiomegaly and extensive coronary calcification. Mild dilatation of the ascending aorta . ACT 112: Negative or not required by law. Electronically signed by: Cornel Hannon M.D. 07/05/2023 2:18 PM
[2023-07-05] MEDS: ONDANSETRON INJ 2 MG/ML 2 ML VIAL IV ONE (21:20)
[2023-07-06 05:57] LABS: Hematocrit (blood only) 37.3 % (42.0-52.0); Hemoglobin 12.8 g/dl (14.0-18.0); Mean Corpuscular Hemoglobin 32.9 pg (25.0-34.0); Mean Corpuscular Hgb Conc 34.3 g/dL (32.0-36.0); Mean Corpuscular Volume 95.9 fL (80.0-100.0); Mean Platelet Volume 9.7 fL (9.4-12.4); Platelet Count 190 K/uL (130-400); RDW Coefficient of Variation 12.8 % (11.5-14.5); RDW Standard Deviation 45.4 fL (36.4-46.3); Red Blood Count 3.89 M/uL (4.70-6.10); White Blood Count 10.37 K/ul (4.8-10.8)
[2023-07-06 06:23] LABS: Calcium 8.3 mg/dl (8.6-10.3); Creatinine Clr Calc Pharmacy 87.8 ml/min; Est GFR (African American) 106.5 ml/min; Est GFR (Non-African American) 91.9 ml/min; Potassium 3.9 mmol/L (3.5-5.1)
--- NOTE | 2023-07-06 08:33 | Orthopedic Progress Note ---
Date of Service July 06, 2023 Assessment & Plan (1) History of hip surgery: POD 2 status post right open gluteus medius and minimus repair with allograft augmentation. Making progress as expected. Out of bed minimally with PT so far. Right brachiocephalic stenosis identified by the hospitalist after incons istent pulses and blood pressures in the right upper extremity. Some waxing and waning oxygen demand. -Appreciate hospitalist management of multiple medical comorbiditiesawaiting your input on disposition. Will need to see about oxygenation today. -He has an established vascular surgeon at [facility] for mesenteric and left subclavian artery disease. Will need to follow-up following this hospit alization. -PT/OT consults: Partial weightbearing to the right hip with walker, avoid active hip abduction and external rotation, avoid passive external rotation and adduction stretch. Continue to mobilize today. -Continue current pain management -May be out of bed with assistance only -VTE PPx: Aspirin and Plavix. The Plavix was continued through the perioperative period. Dispo: Depends on performance with therapy today. Will also need to determine his oxygenation. Appreciate the hospitalist input on his readiness for discharge. PT/OT recommended acute rehab. His is hoping to have him come home. I encouraged him to see how he does today. Expected least another hospital day to ensure safety and readiness. Subjective Reports pain is more tolerable today. Said it feels tight. Appetite intact. No BM yet. Urination okay. He says he is in a better mood today because of the panic attacks yesterday. He and his said he was able to manage ambulation around the bottom of the bed yesterday, but that was quite exhausting. Nurse reports some up-and-down oxygen demands. He was 88% on room air this morning so oxygen was restarted. Review of Systems All systems reviewed & are unremarkable except as noted in HPI & below. Physical Exam RLE: The hip dressing is clean and dry and intact. Will leave undisturbed again today until postop day 3. Positive DF/PF/straight leg raise. Buttock and thigh compartments soft. Constitutional WD/WN, vitals as above Respiratory normal respiratory effort; no respiratory distress Cardiovascular Extremities: normal capillary refill; no edema Chest (Breasts) Chest: normal inspection of chest Skin no rashes, warm and dry Psychiatric A+Ox3, euthymic affect Results & Data Results & Data Laboratory Results Laboratory Tests 06/12/23 07/05/23 07/06/23 12:14 05:49 05:36 Hct 43.8 42.3 37.3 L Diagnostic Findings CTA with severe stenosis to the right brachiocephalic trunk, and significant stenosis of the bilateral carotids. PG Care Time/CCT Total # of Minutes Spent Total Time Spent with Patient: Total time spent is greater than 50% in coordination of care (as documented) at patient's floor/unit and/or counseling patient: Coding Level of Care Code 02753 Post Operative Follow-Up Diagnoses History of hip surgery Z98.890
--- NOTE | 2023-07-06 10:18 | Hospitalist Progress Note ---
Date of Service July 06, 2023 Assessment & Plan (1) Tear of gluteus medius tendon: Plan: S/p operative repair 07/04/[address] Gibbs Pain control, DVT prophylaxis, activity recommendations per primary team Consulted for intraoperative hypotension. - Patient reports anxiety and claustrophobia. Ativan 0.5mg Q4h PRN. - Concern about discordant BP and reduced radial pulses bilaterally. -- CTA chest 07/05/2023 revealed extensive calcified plaque within brachiocephalic trunk, which results in severe stenosis. The vessel appears near occluded. Patent left subclavian artery stent. No thoracic aortic dissection. -- Resumed anticoagulation with aspirin and Plavix 07/05/23. -- Patient follows with [facility] vascular surgery. HIM form so results can be sent to their office. -- Recommend follow-up with them upon discharge for monitoring and further management. -- Continue with anticoagulation of aspirin and Plavix for now. - Intermittent supplemental oxygen demands. -- Patient remained stable at 95% on room air last night. On 2L NC this morning. -- No signs of PE, infectious etiology/pneumonia, pneumothorax. -- Could be due to nonobstructive atelectasis secondary to anesthesia. -- Recommend continued use of incentive spirometry. -- Continuous pulse oximetry with supplemental oxygen PRN and O2 goal of 89%. -- Consider 2 Step Test if able based on post-operative restrictions to determine if patient requires supplemental oxygen upon discharge. - Hospital medicine will continue to follow. (2) Hypoxia: Plan: Continue incentive spirometry. History of mildly reduced EF and mild . -- If oxygen requirement does not resolve, recommend getting CXR. If congested, recommend 20 mg Lasix IV x1. (3) CAD (coronary artery disease): Plan: With history of cardiac arrest, CABG, and ICD placement with atrial placed baseline rhythm No chest pain, no chest pressure no signs of ACS preceding surgery or time bedside assessment Follow clinically Continue metoprolol, Plavix Lisinopril temporarily held due to hypotension, resumed on 07/05/2023 (4) BPH (benign prostatic hyperplasia): Plan: Bladder scan every shift Plan Recommend taking blood pressures and left arm for more accurate readings due to extensive calcified atherosclerotic plaque within the brachiocephalic trunk, nearly occluded. Patient no longer hypoxic, blood pressure stable. Hospital medicine will continue to follow. CODE STATUS: Full code Admission and Anticipated Discharge Date Admission Date: July 04, 2023 Subjective Patient seen and evaluated at bedside with . He reports some tightness around his operative sight. He does report 9/10 pain, but the patient appeared to be sitting comfortably in bedside chair, without tachycardia, tachypnea, restlessness, or agitation. He remained stable on room air throughout last night, but was on 2L NC at the time of my evaluation. We discussed continued use of incentive spirometry, and titrating down with oxygen. Patient denies fever, chills, sweats, wheezing, difficulty breathing, or shortness of breath. We will continue to follow. Physical Exam Physical Exam: General: No acute distress, nondiaphoretic, well-developed, well-nourished. Skin: The skin was without rashes, erythema, edema, or bruising. Cardiac: Regular rate and rhythm without gallops or rubs. Systolic murmur present. Decreased radial pulses bilaterally, more prominent on the right side. Pulm: Diminished breath sounds bilaterally. No wheezes, rales or rhonchi. No retractions or accessory muscle use. Abdominal: Positive bowel sounds x 4. Soft, nontender, without masses or organomegaly. No guarding or rebound tenderness. Neuro: A&O x3. No focal neurological deficits. Extremities: Right hip with postsurgical dressing in place, clear, dry, intact. PT pulse intact bilaterally, sensation soft touch is intact in feet bilaterally. No signs of neurovascular compromise. Trace ankle edema is present. Results & Data Results & Data Vital Signs (Past 12 Hours) Vital Signs Temp Pulse Pulse Resp BP BP Pulse Ox 07/06/23 08:03 36.4 C L 59 L 18 138/70 91 07/06/23 07:05 07/06/23 07:01 60 07/06/23 03:44 37.1 C 85 20 130/73 95 07/05/23 23:13 36.3 C L 73 18 95/61 L 92 O2 Del Method O2 Flow Rate 07/06/23 08:03 Nasal Cannula 2 07/06/23 07:05 Nasal Cannula 2 07/06/23 07:01 07/06/23 03:44 Room Air 07/05/23 23:13 Room Air Laboratory Results Reviewed CBC Reviewed chemistries PG Care Time/CCT Total # of Minutes Spent Total Time Spent with Patient: Total time spent is greater than 50% in coordination of care (as documented) at patient's floor/unit and/or counseling patient: Coding Level of Care Code 82231 SUB INP/OBS CARE 2/35MIN Diagnoses Tear of gluteus medius tendon S76.019A Hypoxia R09.02 CAD (coronary artery disease) I25.10 BPH (benign prostatic hyperplasia) N40.0
[2023-07-07 07:32] LABS: Hematocrit (blood only) 36.2 % (42.0-52.0); Hemoglobin 12.6 g/dl (14.0-18.0); Mean Corpuscular Hemoglobin 32.9 pg (25.0-34.0); Mean Corpuscular Hgb Conc 34.8 g/dL (32.0-36.0); Mean Corpuscular Volume 94.5 fL (80.0-100.0); Mean Platelet Volume 9.9 fL (9.4-12.4); Platelet Count 177 K/uL (130-400); RDW Coefficient of Variation 12.7 % (11.5-14.5); RDW Standard Deviation 44.5 fL (36.4-46.3); Red Blood Count 3.83 M/uL (4.70-6.10); White Blood Count 10.61 K/ul (4.8-10.8)
[2023-07-07 07:57] LABS: Calcium 8.6 mg/dl (8.6-10.3); Creatinine Clr Calc Pharmacy 90.4 ml/min; Est GFR (African American) 107.9 ml/min; Est GFR (Non-African American) 93.1 ml/min; Potassium 4.1 mmol/L (3.5-5.1)
--- NOTE | 2023-07-07 08:21 | Hospitalist Progress Note ---
Date of Service July 07, 2023 Assessment & Plan (1) Tear of gluteus medius tendon: Plan: S/p operative repair 07/04/[address] Gibbs Pain control, DVT prophylaxis, activity recommendations per primary team Consulted for intraoperative hypotension. - Ativan 0.5mg Q4h PRN for anxiety. - Concern about discordant BP and reduced radial pulses bilaterally. - CTA chest 07/05/2023 revealed extensive calcified plaque within brachiocephalic trunk, which results in severe stenosis. The vessel appears near occluded. Patent left subclavian artery stent. No thoracic aortic dissection. -- Patient follows with [facility] vascular surgery. HIM form so results can be sent to their office. -- Recommend follow-up with them upon discharge for monitoring and further management. -- Continue with anticoagulation of aspirin and Plavix for now. - Intermittent supplemental oxygen demands. No signs of PE, infectious etiology/pneumonia, pneumothorax. -- Stable at 94% on room air today, 07/07/23. -- Could be due to nonobstructive atelectasis secondary to anesthesia. -- Recommend continued use of incentive spirometry. -- Continuous pulse oximetry with supplemental oxygen PRN and O2 goal of 89%. -- Consider 2 Step Test if able based on post-operative restrictions to determine if patient requires supplemental oxygen upon discharge. (2) Hypoxia: Plan: Continue incentive spirometry. History of mildly reduced EF and mild . -- If oxygen requirement does not resolve, recommend getting CXR. If congested, recommend 20 mg Lasix IV x1 and reassess. (3) CAD (coronary artery disease): Plan: With history of cardiac arrest, CABG, and ICD placement with atrial placed baseline rhythm. No chest pain, no chest pressure no signs of ACS. Continue metoprolol, Plavix, lisinopril (4) BPH (benign prostatic hyperplasia): Plan: Bladder scan every shift Plan Recommend taking blood pressures and left arm for more accurate readings due to extensive calcified atherosclerotic plaque within the brachiocephalic trunk, nearly occluded. Consider 2 Step Test if able based on post-operative restrictions to determine if patient requires supplemental oxygen upon discharge. Recommend follow-up with [facility] vascular surgery upon discharge for nearly occluded extensively calcified brachiocephalic trunk. Hospital medicine will sign off at this time. Please contact with any questions or concerns. CODE STATUS: Full code Admission and Anticipated Discharge Date Admission Date: July 06, 2023 Subjective Patient seen and evaluated at bedside with . He has remained stable on room air. He reports his pain is controlled with his current pain regimen. He has no complaints at this time. Patient is ready for discharge from a medical perspective. Hospital medicine will sign off at this time. Please contact with any questions or concerns. Physical Exam Physical Exam: General: No acute distress, nondiaphoretic, well-developed, well-nourished. Skin: The skin was without rashes, erythema, edema, or bruising. Cardiac: Regular rate and rhythm without gallops or rubs. Systolic murmur present. Decreased radial pulses bilaterally, more prominent on the right side. Pulm: Diminished breath sounds bilaterally. No wheezes, rales or rhonchi. No retractions or accessory muscle use. Abdominal: Positive bowel sounds x 4. Soft, nontender, without masses or organomegaly. No guarding or rebound tenderness. Neuro: A&O x3. No focal neurological deficits. Extremities: Right hip with postsurgical dressing in place, clear, dry, intact. PT pulse intact bilaterally, sensation soft touch is intact in feet bilaterally. No signs of neurovascular compromise. Trace ankle edema is present. Results & Data Results & Data Vital Signs (Past 12 Hours) Vital Signs Temp Pulse Resp BP Pulse Ox O2 Del Method O2 Flow Rate 07/07/23 07:58 37.1 C 61 16 131/69 94 Room Air 07/07/23 03:37 36.6 C 60 18 135/63 95 Nasal Cannula 1 07/07/23 00:14 36.9 C 60 18 123/61 93 Nasal Cannula 1 07/06/23 21:15 Nasal Cannula 1 Laboratory Results Reviewed CBC Reviewed chemistries PG Care Time/CCT Total # of Minutes Spent Total Time Spent with Patient: Total time spent is greater than 50% in coordination of care (as documented) at patient's floor/unit and/or counseling patient: Coding Level of Care Code 72737 SUB INP/OBS CARE 2/35MIN Diagnoses Tear of gluteus medius tendon S76.019A Hypoxia R09.02 CAD (coronary artery disease) I25.10 BPH (benign prostatic hyperplasia) N40.0
--- NOTE | 2023-07-07 12:07 | Orthopedic Progress Note ---
Date of Service July 07, 2023 Assessment & Plan (1) History of hip surgery: POD 3 status post right open gluteus medius and minimus repair with allograft augmentation. Making progress as expected. Out of bed minimally with PT so far. Made better progress with him yesterday. Has yet to work with him today. 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 Some waxing and waning oxygen demand. -Appreciate hospitalist management of multiple medical comorbiditiesthey are currently sign off on them at this point deemed that he is medically optimized for discharge at this point. Please refer to their note for any other additional information. -He has an established vascular surgeon at [facility] for mesenteric and left subclavian artery disease. Will need to follow-up following this hospitalization. -PT/OT consults: Partial weightbearing to the right hip with walker, avoid active hip abduction and external rotation, avoid passive external rotation and adduction stretch. Continue to mobilize today. -Continue current pain management -May be out of bed with assistance only -VTE PPx: Aspirin and Plavix. The Plavix was continued through the perioperative period. Dispo: Depends on performance with therapy today. Will also need to determine his oxygenation. Appreciate the hospitalist input on his readiness for discharge. Hospital service deemed him medically optimized for discharge today and are signing off on him. PT/OT recommended acute rehab. Referral for [facility] is pending at this point. He is orthopedically stable at this point for discharge to [facility] if accepted today with bed availability. He will follow-up with Dr. Gibbs in 2 weeks for postoperative management. Subjective .Lg was seen this morning resting comfortably in no apparent distress. He notes that his pain is very tolerable today. Still notes a little bit of tightness to the leg bilaterally that he notes that he is doing quite well today. He did note that the nurse did change his dressing today. She did not reapply a dressing at this point in time. He noted that he was able to ambulate better yesterday with physical therapy. They are still recommended he go to rehab upon discharge. He denies any other concerns today. Review of Systems All systems reviewed & are unremarkable except as noted in HPI & below. Physical Exam . Physical examination of the right lower extremity reveals surgical site is dry with some serosanguineous drainage present on his hospital gown adjacent to the surgical site. Positive DF/PF/straight leg raise. Buttocks and thigh compartments are soft and compressible. +2 DP and PT pulse. Less than 2-second capillary refill. Normal sensation. Vascular intact. Constitutional WD/WN, vitals as above Respiratory normal respiratory effort; no respiratory distress Cardiovascular Extremities: normal capillary refill; no edema Chest (Breasts) Chest: normal inspection of chest Skin no rashes, warm and dry Psychiatric A+Ox3, euthymic affect Results & Data Results & Data Laboratory Results . Diagnostic Findings . PG Care Time/CCT Total # of Minutes Spent Total Time Spent with Patient: Total time spent is greater than 50% in coordination of care (as documented) at patient's floor/unit and/or counseling patient: Coding Level of Care Code 64326 Post Operative Follow-Up Diagnoses History of hip surgery Z98.890
--- NOTE | 2023-07-08 12:03 | Discharge Summary ---
Date of Service July 07, 2023 Admission HPI (Per Admitting) 78-year-old male sustained a fall in the fall 2022 resulting in persistent limp and right hip pain. He was referred to me with subacute gluteus medius tear and ambulatory dysfunction. I offered elective gluteus medius repair endoscopically or open. He presents today to proceed with that plan we determined on June 01, 2022. No changes to his health history. He had to continue his Plavix but he was able to stop his aspirin. Admission Exam (Per Admitting) Right hip: No changes from exams on 06/02/2023. The overlying skin is without compromise. Principal Diagnosis Same as "Discharge Diagnosis" noted below under Discharge Instructions. Discharge Exam . Physical examination of the right lower extremity reveals surgical site is dry with some serosanguineous drainage present on his hospital gown adjacent to the surgical site. Positive DF/PF/straight leg raise. Buttocks and thigh com partments are soft and compressible. +2 DP and PT pulse. Less than 2-second capillary refill. Normal sensation. Vascular intact. Discharge Data Consultations 07/04/23 13:32 Consult Hospitalist Routine Procedures Performed Operation Date: 07/04/23 07:00 Actual Procedures p Right Hip Endoscsopic Bursectomy, Open Repair Gluteus Medius with Allograft Augmentation(Right) - Natanael Gibbs MD Ordered Studies 07/05/23 12:38 CT angio chest w con Urgent Hospital Course (1) History of hip surgery: On July 04, 2023 Lg arrived at [facility] underwent a right hip endoscopic bursectomy with open repair of gluteus medius with allograft augmentation performed by Dr. Gibbs with no complications. He had a general anesthetic. Postoperatively, he was started on aspirin as well as restarted on his Plavix for DVT prophylaxis and transferred to the general orthopedic floor in stable condition. On postoperative day #1, he was having some hypertension hypoxia. The hospitalist service was consulted previously on him due to perioperative hypotension. On his CT scan on 07/05/2023 revealed extensive calcified plaque within the brachiocephalic trunk which results in severe stenosis. He was on anticoagulations for this. They did encourage him to continue with incentive spirometry due to the hypoxia as well as maintaining oxygen via nasal cannula. I did talk about not having him take blood pressures on left arm due to this nature. He did participate with physical therapy wo rking on ambulation and range of motion exercises. He is not stable for discharge at this point was tucked in for the night. No other significant events occurred on this day. On postoperative day #2, his hypoxia and hypertension resolved and were stable at this point. He again worked with physical therapy working on ambulation and range of motion exercises. It was then discussed the possibility of him going to a rehabilitation hospital upon discharge in which she was in agreements with. Case management was brought to board a referral for [facility] was sent out. No other significant events occurred the remaining day. On postoperative day #3, his vital signs are stable and his pain is well-controlled. He participated well with physical therapy and Occupational Therapy working on ambulation and range of motion exercises. He was accepted and a bed was available at [facility] at this time. He was discharged to [facility] in stable condition. He will follow-up with Dr. Gibbs in 2 weeks for postoperative management. PG Care Time/CCT Total # of Minutes Spent Total Time Spent with Patient: Total time spent is greater than 50% in coordination of care (as documented) at patient's floor/unit and/or counseling patient: Discharge Plan Discharge Items Patient Disposition: Transfer Inpatient Rehab Fac Reason For Visit: S/P RIGHT HIP SURGERY Discharge Diagnosis: Gluteal tear repaired with allograft augmentation Activity: Per Instructions section Non-emergency contact: Surgeon Call non-emergency contact if: your pain is not controlled and your temperature is above 101 Follow-up/Referrals: Jair Rosales MD [Primary Care Provider] - Natanael Gibbs MD [Surgeon] - Diet: Regular Addtl Attending Provider Instructions: Natanael Gibbs MD [facility] Orthopedic Sports Medicine [facility] PG Orthopedic Surgery [address], [place] [address] DISCHARGE INSTRUCTIONS FOR OPEN OR ARTHROSCOPIC GLUTEAL TENDON REPAIR WEIGHTBEARING: Partial weightbearing for 6 weeks Crutches or Walker at all times. Partial (<50%) Weightbearing means may place your foot on the ground, but do not transfer more than 50% of your weight or stride on the leg. HIP MOTION: Try to relax with foot pointed forward. Comfort will be your guide. Physical therapy will work to teach you how to move appropriately. No active hip abduction (moving foot outward or away from body) Avoid active IR (turning foot or knee inward) for 6 weeks. Avoid passive hip adduction (crossing your legs) for 6 weeks. Do not push through pain or pinching. Gradual stretching is lopes. WOUND CARE: Leave the dressing in place and keep the area clean and dry. After 3 days, you may remove your dressing. DO NOT REMOVE ANY SUTURES OR JAXSON. THEY WILL BE REMOVED BY YOUR ORTHOPEDIC TEAM IN CLINIC. If you have paper tape strips over the incisions, do not remove them. They will gradually fall off over 2-3 weeks. You may lose some earlier, which is not a problem. After removing your dressing, you may begin to shower. Do not soak the incision. Allow gentle soap and water to run over the wound(s) and pat dry. Please cover the incision(s) with a clean, dry dressing, as needed. Do not use any ointments or topical medications unless directed by your surgeon. Do not submerse the incisions in water no pools, oceans, lakes, jacuzzis, bathtubs, etc for at least 3 weeks. PAIN CONTROL If you had an ANESTHETIC BLOCK, the effects will wear off in 6-12 hours. When you feel sensation returning, be ready with a pain medication. You may experience rebound pain for a few hours before pain subsides. Stay ahead of the pain with your medications. Use the cryocuff as directed, instead of ice. Use for 30 minutes per hour. Do not leave in place longer than 30 minutes, especially when your block is in effect, to prevent frostbite or thermal injury. MEDICATIONS: 1. Oxycodone (OxyIR) 1-2 tablet(s) orally every 6 hours for pain as needed. Use with Tylenol. Begin tapering OxyIR as soon as possible: reduce from 2 to 1 pills per dose, then spread out the doses over greater time intervals, then try to use only for therapy or for comfort while sleeping. Continue to use regular Tylenol until pain subsides. 2. Tylenol (325mg): 3 tablets every 8 hours orally. Regular dosing of Tylenol is an important part of your baseline pain control. Do not taper Tylenol until you have successfully tapered off of regular OxyIR. Do not take more than 3000mg of Tylenol per day. 3. Aspirin 325m tablet orally every day for 6 weeks to reduce the risk of dangerous blood clots. CONSTIPATION: Narcotic pain medications can slow down your digestive track, leading to constipation. Stay hydrated. While taking narcotics, the use of stool softeners is recommended. Two over the counter options are: 1. Colace (100mg): take 1-2 tabs twice daily to avoid constipation from OxyIR or other narcotics. 2. Miralax 1 tablespoon in a glass of water 2 times daily until normal bowel movements FOLLOWUP: 1. Ortho Clinic: You should be seen in 10-14 days. Please call immediately to schedule if you do not have an appointment. WHEN TO CALL. If you develop any of the following symptoms, please contact the Orthopedic Clinic at [phone]: Temperature greater than 101 taken twice, difficulty breathing, bleeding, fever and chills, increased pain unrelieved by pain meds, uncomfortable cast or splint, or any other concerns. Pending Studies at Discharge: No Stand-Alone Forms: My [facility] Skilled Items Patient informed of condition?: Yes DNR: No Discharge Level of Care: Acute rehab Communicable Disease: No Discharge Prognosis: Stable Lines: None Urinary Catheter: No Medications and DC Order Prescriptions: New oxycodone 5 mg Tablet 5 - 10 mg PO Q6H PRN (Reason: pain) Qty: 18 0RF Continued epinephrine 0.3 mg/0.3 mL auto-injector 0.3 mg IM UD PRN (Reason: anaphylaxis) Qty: 1 2RF zinc gluconate 50 mg tablet 50 mg PO QAM PRN (Reason: winter ) potassium chloride 10 mEq capsule, extended release 10 meq PO QAM Qty: 30 multivitamin with iron [Daily Multiple Vitamins/Iron] tablet 1 tab PO QAM omega-3 fatty acids [Fish Oil Concentrate] 1,000 mg capsule 1,000 mg PO QAM loratadine 10 mg tablet 10 mg PO DAILY PRN (Reason: allergy symptoms) lisinopril 5 mg tablet 5 mg PO PM Qty: 90 Adult Probiotic 3 billion cell capsule 3,000 mmu cells PO QAM gabapentin 100 mg capsule 100 mg PO HS Qty: 60 furosemide 20 mg tablet 20 mg PO QAM Qty: 90 clopidogrel 75 mg tablet 75 mg PO QAM atorvastatin 40 mg tablet 40 mg PO PM Qty: 90 aspirin 81 mg tablet 81 mg PO QAM ascorbic acid (vitamin C) 1,000 mg tablet 1 gm PO QAM Glucosamine Complex-MSM capsule 1 cap PO DAILY isosorbide mononitrate 60 mg tablet extended release 24 hr 60 mg PO QAM escitalopram oxalate [Lexapro] 20 mg tablet 20 mg PO QAM acetaminophen 650 mg tablet extended release 1,300 mg PO HS PRN (Reason: pain) calcium carbonate [Tums] 200 mg calcium (500 mg) tablet,chewable 200 mg PO UD PRN (Reason: Indigestion) peg 400-propylene glycol 0.4-0.3 % drops 1 drops OP UD PRN (Reason: dry eye(s)) metoprolol succinate 25 mg tablet extended release 24 hr See Rx Instructions PO BID Rx Instructions: 25mg in PM daily; cyclosporine 0.05 % drops 1 drp OPHTHALMIC (EYE) Q12H fluticasone propionate 50 mcg/actuation [place],Suspension 1 spray INTRANASAL DAILY Discharge Orders: Discharge Order (Routine); Ordered 07/07/23 Ordered By: Emmett Calabrese Admission Data Admit Date/Time: 07/06/23 14:35 Attending Provider: Natanael Gibbs Admit Provider: Natanael Gbibs Primary Care Provider: Jair Rosales Other Providers: [facility] Other Interventions: Discharge Summary Assessment (RN) Last Done: 07/07/23 13:16
== END 2023-07-07 16:34 | DRG 501 ==
LOC: ASU 05:28 → 2N 05:28